=== PATIENT | female | born 1980 | race Caucasian/White ===

== ENCOUNTER 2016-04-19 13:27 | Emergency (ER) | payer OTHER ==
[2016-04-19] MEDS ORDERED: Metoclopramide IV* 5 MG/ML 2 ML VIAL IV ONE (13:59)
[2016-04-19] MEDS ORDERED: NS 0.9% 1000 ML* 1,000 ML IV ONE (13:59)
[2016-04-19] MEDS ORDERED: Ketorolac INJ* 30 MG/ML 1 ML VIAL IV ONE (13:59)
[2016-04-19] MEDS ORDERED: diPHENhydraMINE IV* 50 MG/ML 1 ml VIAL (BENADRYL) IV ONE (14:00)
[2016-04-19 16:26] VITALS: BP 107/62
--- NOTE | 2016-04-19 19:27 | ED ---
Homero Oliva Janilya, scribed for Jigar Mora MD on 04/19/16 at 1344 . Headache - HPI Summary HPI Summary: A 35 y/o [facility] [place] w/ a gradual onset of constant VILLALTA for 6 days. Pt reports she had eye pain that was similar to "after crying a lot " that started 4 days ago. The next day, pt had eye appointment that has been previously scheduled. At appt, eye drops were used to dilate her eyes. Afterwards, eye pain has progressively worsened. Pt states it feels like pressure and muscle pain "behind eye". It is always one or the other eye, never both. Pt states she feels nauseated and weak. Pt denies vision changes. At this moment, the left eye hurts. Pt denies neck pain to palpation. PMHx tension VILLALTA in neck, for which, pt normally takes Advil. For this particular VILLALTA, pt took Flexeril today at 1030 and yesterday. It slightly relieved the pain. Pt also used icy hot on neck. - History Of Current Complaint Chief Complaint: EDHeadache Stated Complaint: HEADACHE Time Seen by Provider: 04/19/16 13:39 Hx Obtained From: Patient Hx Last Menstrual Period: started January 16 Onset/Duration: Gradual Onset, Started days ago, Still Present Initially Headache Was: Moderate Currently Pain Is: Moderate Timing: Constant Aggravating Factor: Nothing Allevating Factors: Medication - muscle relaxant, Position Change - moving head - Risk Factors SAH Risk Factors: Negative Meningitis Risk Factors: Immune Deficiency SDH Risk Factors: Negative Temporal Arteritis Risk Factors: Female - Allergies/Home Medications Allergies/Adverse Reactions: Allergies Allergy/AdvReac Type Severity Reaction Status Date / Time Lactose Intolerance (GI) Allergy Severe Diarrhea Verified 12/02/15 13:14 Prednisone AdvReac Severe Altered Verified 01/25/16 09:38 Mental Status Erythromycin AdvReac vomiting, Verified 01/25/16 09:38 shaking Gluten Meal AdvReac See Comment Verified 12/02/15 13:14 orthotricyclen Allergy Hives Uncoded 12/02/15 13:14 sris AdvReac Unknown Uncoded 01/25/16 09:38 Reaction Details PMH/Surg Hx/FS Hx/Imm Hx Endocrine/Hematology History: Denies: Hx Anticoagulant Therapy, Hx Diabetes, Hx Thyroid Disease Cardiovascular History: Denies: Hx Angina, Hx Congestive Heart Failure, Hx Coronary Artery Disease, Hx Deep Vein Thrombosis, Hx Hypercholesterolemia, Hx Hypertension, Hx Myocardial Infarction, Hx Pacemaker/ICD, Hx Valvular Heart Disease Respiratory History: Denies: Hx Asthma, Hx Chronic Obstructive Pulmonary Disease (COPD), Hx Lung Cancer, Hx Pneumonia, Hx Pulmonary Embolism GI History: Reports: Other GI Disorders - HX OF C-DIFF Denies: Hx Gall Bladder Disease, Hx Gastrointestinal Bleed, Hx Ulcer, Hx Urosepsis History: Denies: Hx Dialysis, Hx Kidney Stones, Hx Renal Disease, Other Problems/ Disorders Musculoskeletal History: Denies: Hx Scoliosis Neurological History: Reports: Hx Headaches, Other Neuro Impairments/Disorders - HX OF FIBROMYALGIA Denies: Hx Dementia, Hx Migraine, Hx Seizures, Hx Transient Ischemic Attacks (TIA) Psychiatric History: Reports: Hx Anxiety, Hx Depression Denies: Hx Schizophrenia, Hx Bipolar Disorder - Immunization History Date of Tetanus Vaccine: Unknown Infectious Disease History: No Infectious Disease History: Reports: Hx Clostridium Difficile - Apr,May,Jun 2008 Denies: Hx Hepatitis, Hx Human Immunodeficiency Virus (HIV), Hx of Known/ Suspected MRSA, Hx Shingles, Hx Tuberculosis, Hx Known/Suspected VRE, Hx Known/ Suspected VRSA, History Other Infectious Disease, Traveled Outside the [place] in Last 30 Days - Family History Known Family History: Positive: Cardiac Disease, Other - lupus Negative: Hypertension - Social History Alcohol Use: None Substance Use Type: Reports: None, Prescribed Smoking Status (MU): Never Smoked Tobacco Review of Systems Eyes: Negative - pt denies vision changes, see hpi Positive: Other - pressure and pain behind eye Positive: Nausea Positive: Headache, Weakness All Other Systems Reviewed And Are Negative: Yes Physical Exam Triage Information Reviewed: Yes Vital Signs On Initial Exam: Initial Vitals Temp Pulse Resp BP Pulse Ox 97.9 F 86 16 123/65 100 04/19/16 13:30 04/19/16 13:30 04/19/16 13:30 04/19/16 13:30 04/19/16 13:30 Vital Signs Reviewed: Yes Appearance: Positive: Well-Appearing, Pain Distress - moderate Skin: Positive: Warm, Skin Color Reflects Adequate Perfusion, Dry Head/Face: Positive: Normal Head/Face Inspection - no meningeal signs Eyes: Positive: Normal - no meningeal signs ENT: Positive: Normal ENT inspection Neck: Positive: Supple, Nontender Respiratory/Lung Sounds: Positive: Clear to Auscultation, Breath Sounds Present Cardiovascular: Positive: RRR Abdomen Description: Positive: Nontender, Soft Bowel Sounds: Positive: Present Musculoskeletal: Positive: Normal Neurological: Positive: Normal Psychiatric: Positive: Affect/Mood Appropriate Diagnostics - Vital Signs Vital Signs Temp Pulse Resp BP Pulse Ox 04/19/16 13:30 97.9 F 86 16 123/65 100 - Laboratory Lab Statement: Any lab studies that have been ordered have been reviewed, and results considered in the medical decision making process. Headache Course/Dx - Course Course Of Treatment: Agustin Aquino presented with a VILLALTA that was somewhat different from her usual muscle tension VILLALTA' in that it was located behing one or the other eye and would switch back and forth for several days. She improved dramatically here with the normal cocktail of ketorolac, reglan and benadryl and IV NS. - Diagnoses Provider Diagnoses: Migraine, Headache Discharge - Discharge Plan Condition: Stable Disposition: HOME Patient Education Materials: Migraine Headache (ED) Referrals: Jonathan Johnson MD [Primary Care Provider] - 2 Days Additional Instructions: Follow up with your primary care physician in 2 days if symptoms persist or worsen. The documentation as recorded by the Homero levy Janilya accurately reflects the service I personally performed and the decisions made by , Jigar Mora MD.
== END 2016-04-19 16:25 | disposition home or self-care (01) ==
LOC: ED 13:27
DX: G43.909 Migraine, unspecified, not intractable, without status migrainosus (principal); R51 Headache; R53.1 Weakness; R11.0 Nausea
CPT/HCPCS: 96374; 96375; 99283; J1200; J1885; J2765

== ENCOUNTER → 2017-01-23 01:37 | Emergency (ER) | payer OTHER ==
[2017-01-23 04:14] LABS: Hematocrit 36 % (35-47); Mean Corpuscular HGB Conc 33 g/dl (31-36); Mean Corpuscular Hemoglobin 27 pg (27-31); Mean Corpuscular Volume 83 fL (80-97); Mean Platelet Volume 8 um3 (7.4-10.4); Red Blood Count 4.38 10^6/ul (4.0-5.4); Red Cell Distribution Width 16 % (10.5-15); White Blood Count 5.5 10^3/ul (3.5-10.8)
[2017-01-23 04:30] LABS: ALT 25 U/L (7-52); AST 30 U/L (13-39); Albumin 4.1 g/dL (3.2-5.2); Alkaline Phosphatase 44 U/L (34-104); Anion Gap 6 mmol/L (2-11); BUN/Creatinine Ratio 21.2 (8-20); Blood Urea Nitrogen 18 mg/dL (6-24); CO2 Carbon Dioxide 27 mmol/L (22-32); Calcium 9.5 mg/dL (8.6-10.3); Chloride 104 mmol/L (101-111); EGFR African American 96.8 (>60); EGFR Non-African American 75.3 (>60); Globulin 2.9 g/dL (2-4); Glucose 95 mg/dL (70-100); Lipase 30 U/L (11.0-82.0); Potassium 3.6 mmol/L (3.5-5.0); Sodium 137 mmol/L (133-145)
[2017-01-23 05:46] LABS: Urine Bilirubin Negative (Negative); Urine Glucose Negative (Negative); Urine Nitrite Negative (Negative)
[2017-01-23 07:56] VITALS: BP 118/86
--- NOTE | 2017-01-23 08:16 | RAD ---
CLINICAL HISTORY: Right flank pain, renal calculi COMPARISON: February 03, 2012 TECHNIQUE: Multiple contiguous axial CT scans were obtained of the abdomen and pelvis, without intravenous contrast enhancement. Coronal and sagittal multiplanar reformations are submitted for review. Oral contrast was not administered. FINDINGS: The study is limited by the lack of intravenous contrast. This limits evaluation of the solid organs and vasculature. LUNG BASES: The lung bases are clear. LIVER: The liver is normal in shape, size, contour, and attenuation. BILE DUCTS: There is no intrahepatic or extrahepatic biliary dilatation. GALLBLADDER: The gallbladder is normal, without pericholecystic inflammatory change. PANCREAS: The pancreas is normal, without mass or ductal dilatation. SPLEEN: Normal in size and appearance. UPPER GI TRACT: Evaluation of the gastrointestinal tract is limited by incomplete gastric distention. The upper GI tract is unremarkable. SMALL BOWEL AND MESENTERY: The small bowel is normal in contour, course, and caliber. There is no obstruction or dilatation. COLON: The colon is normal in contour, course, caliber. There is no pericolonic inflammatory change. ADRENALS: Normal bilaterally. KIDNEYS: The kidneys are normal in shape, size, contour, and axis. There is no hydronephrosis or nephrolithiasis. BLADDER: The bladder is collapsed and is not well evaluated. PELVIC ORGANS: The uterus and adnexa are grossly normal for technique. AORTA: The aorta is normal. IVC: Unremarkable LYMPH NODES: There is no lymphadenopathy by size criteria. ABDOMINAL WALL: There is no evidence for abdominal wall hernia. BONES AND SOFT TISSUES: Minimal degenerative changes are noted at L5-S1 OTHER: None IMPRESSION: NO ACUTE CT PATHOLOGY OF THE VISUALIZED ABDOMEN OR PELVIS.
--- NOTE | 2017-01-23 18:43 | ED ---
Loan Oliva Edward, scribed for Favio Adair MD on 01/23/17 at 0727 . Abdominal Pain/Female - HPI Summary HPI Summary: 36 y/o female presents to the ED c/o waxing and waning RLQ ABD pain for 3 days. Pt has not taken anything for pain. Pt is in no pain currently. The pain is not aggravated or alleviated by anything. - History of Current Complaint Chief Complaint: EDAbdPain Stated Complaint: RLQ PAIN Time Seen by Provider: 01/23/17 03:24 Hx Obtained From: Patient Hx Last Menstrual Period: started January 16 Onset/Duration: Lasting Days Timing: Intermittent Episode Lasting - waxing and waning Severity Currently: None Pain Intensity: 0 Location: Discrete At: RLQ Aggravating Factor(s): Nothing Alleviating Factor(s): Nothing Allergies/Adverse Reactions: Allergies Allergy/AdvReac Type Severity Reaction Status Date / Time Lactose Intolerance (GI) Allergy Severe Diarrhea Verified 12/02/15 13:14 Prednisone AdvReac Severe Altered Verified 01/25/16 09:38 Mental Status Erythromycin AdvReac vomiting, Verified 01/25/16 09:38 shaking Gluten Meal AdvReac See Comment Verified 12/02/15 13:14 orthotricyclen Allergy Hives Uncoded 12/02/15 13:14 sris AdvReac Unknown Uncoded 01/25/16 09:38 Reaction Details PMH/Surg Hx/FS Hx/Imm Hx Previously Healthy: No Endocrine/Hematology History: Denies: Hx Anticoagulant Therapy, Hx Diabetes, Hx Thyroid Disease Cardiovascular History: Denies: Hx Angina, Hx Congestive Heart Failure, Hx Coronary Artery Disease, Hx Deep Vein Thrombosis, Hx Hypercholesterolemia, Hx Hypertension, Hx Myocardial Infarction, Hx Pacemaker/ICD, Hx Valvular Heart Disease Respiratory History: Denies: Hx Asthma, Hx Chronic Obstructive Pulmonary Disease (COPD), Hx Lung Cancer, Hx Pneumonia, Hx Pulmonary Embolism GI History: Reports: Other GI Disorders - HX OF C-DIFF Denies: Hx Gall Bladder Disease, Hx Gastrointestinal Bleed, Hx Ulcer, Hx Urosepsis History: Denies: Hx Dialysis, Hx Kidney Stones, Hx Renal Disease, Other Problems/ Disorders Musculoskeletal History: Denies: Hx Scoliosis Sensory History: Denies: Hx Hearing Aid Neurological History: Reports: Hx Headaches, Other Neuro Impairments/Disorders - HX OF FIBROMYALGIA Denies: Hx Dementia, Hx Migraine, Hx Seizures, Hx Transient Ischemic Attacks (TIA) Psychiatric History: Reports: Hx Anxiety, Hx Depression Denies: Hx Panic Disorder, Hx Schizophrenia, Hx Bipolar Disorder - Surgical History Surgery Procedure, Year, and Place: CYSTOSCOPY ; SIGNMOIDSCOPY ; ENDOSCOPY - Immunization History Date of Tetanus Vaccine: Unknown Infectious Disease History: No Infectious Disease History: Reports: Hx Clostridium Difficile - Apr,May,Jun 2008 Denies: Hx Hepatitis, Hx Human Immunodeficiency Virus (HIV), Hx of Known/ Suspected MRSA, Hx Shingles, Hx Tuberculosis, Hx Known/Suspected VRE, Hx Known/ Suspected VRSA, History Other Infectious Disease, Traveled Outside the [place] in Last 30 Days - Family History Known Family History: Positive: Cardiac Disease, Other - lupus Negative: Hypertension - Social History Alcohol Use: None Substance Use Type: Reports: None, Prescribed Smoking Status (MU): Never Smoked Tobacco Review of Systems Constitutional: Negative Eyes: Negative ENT: Negative Cardiovascular: Negative Respiratory: Negative Positive: Abdominal Pain Genitourinary: Negative Musculoskeletal: Negative Skin: Negative Neurological: Negative Psychological: Normal All Other Systems Reviewed And Are Negative: Yes Physical Exam - Summary Physical Exam Summary: VITAL SIGNS: Reviewed. GENERAL: Patient is a well-developed and nourished female who is lying comfortable in the stretcher. ~Patient is not in any acute respiratory distress. HEAD AND FACE: Normocephalic and atraumatic. EYES: PERRLA, EOMI x 2, No injected conjunctiva. EARS: Hearing grossly intact. Ear canals and tympanic membranes are WNL. MOUTH: Oropharynx within normal limits. NECK: Supple, trachea is midline, no adenopathy, no JVD. CHEST: Symmetric, no tenderness at palpation LUNGS: Clear to auscultation bilaterally. No wheezing or crackles. CVS: RRR, S1 and S2 present, no murmurs or gallops appreciated. ABDOMEN: Soft, non-tender. No signs of distention. Positive bowel sounds. No rebound no guarding, and no masses palpated. No abdominal bruit or pulsations. EXTREMITIES: FROM in all major joints, no edema, no cyanosis or clubbing. NEURO: Alert and oriented x 3. No acute neurological deficits. Speech is normal. SKIN: Dry and warm Triage Information Reviewed: Yes Vital Signs On Initial Exam: Initial Vitals Temp Pulse Resp BP Pulse Ox 96.9 F 94 14 138/70 100 01/23/17 01:40 01/23/17 01:40 01/23/17 01:40 01/23/17 01:40 01/23/17 01:40 Vital Signs Reviewed: Yes - [place] Coma Scale Coma Scale Total: 15 Diagnostics - Vital Signs Vital Signs Temp Pulse Resp BP Pulse Ox 01/23/17 01:40 96.9 F 94 14 138/70 100 - Laboratory Lab Results: Lab Results 01/23/17 01/23/17 01/23/17 Range/Units 03:50 03:50 04:17 WBC 5.5 (3.5-10.8) 10^3/ul RBC 4.38 (4.0-5.4) 10^6/ul Hgb 12.0 (12.0-16.0) g/dl Hct 36 (35-47) % MCV 83 (80-97) fL MCH 27 (27-31) pg MCHC 33 (31-36) g/dl RDW 16 H (10.5-15) % Plt Count 206 (150-450) 10^3/ul MPV 8 (7.4-10.4) um3 Neut % (Auto) 61.3 (38-83) % Lymph % (Auto) 26.8 (25-47) % [place] % (Auto) 9.6 H (1-9) % Eos % (Auto) 1.5 (0-6) % Baso % (Auto) 0.8 (0-2) % Absolute Neuts (auto) 3.4 (1.5-7.7) 10^3/ul Absolute Lymphs (auto) 1.5 (1.0-4.8) 10^3/ul Absolute Monos (auto) 0.5 (0-0.8) 10^3/ul Absolute Eos (auto) 0.1 (0-0.6) 10^3/ul Absolute Basos (auto) 0 (0-0.2) 10^3/ul Absolute Nucleated RBC 0 10^3/ul Nucleated RBC % 0 Sodium 137 (133-145) mmol/L Potassium 3.6 (3.5-5.0) mmol/L Chloride 104 (101-111) mmol/L Carbon Dioxide 27 (22-32) mmol/L Anion Gap 6 (2-11) mmol/L BUN 18 (6-24) mg/dL Creatinine 0.85 (0.51-0.95) mg/dL Est GFR ( Amer) 96.8 (>60) Est GFR (Non-Af Amer) 75.3 (>60) BUN/Creatinine Ratio 21.2 H (8-20) Glucose 95 (70-100) mg/dL Calcium 9.5 (8.6-10.3) mg/dL Total Bilirubin 0.20 (0.2-1.0) mg/dL AST 30 (13-39) U/L ALT 25 (7-52) U/L Alkaline Phosphatase 44 (34-104) U/L Total Protein 7.0 (6.4-8.9) g/dL Albumin 4.1 (3.2-5.2) g/dL Globulin 2.9 (2-4) g/dL Albumin/Globulin Ratio 1.4 (1-3) Lipase 30 (11.0-82.0) U/L Beta HCG, Quant < 0.60 mIU/mL Urine Color Yellow Urine Appearance Cloudy Urine pH 5.0 (5-9) Ur Specific Accord 1.027 (1.010-1.030) Urine Protein Negative (Negative) Urine Ketones Trace H (Negative) Urine Blood Negative (Negative) Urine Nitrate Negative (Negative) Urine Bilirubin Negative (Negative) Urine Urobilinogen Negative (Negative) Ur Leukocyte Esterase Negative (Negative) Urine Glucose Negative (Negative) Urine Ascorbic Acid * H (Negative) Result Diagrams: 01/23/17 03:50 01/23/17 03:50 Lab Statement: Any lab studies that have been ordered have been reviewed, and results considered in the medical decision making process. - CT ABD/PEL CT CT Interpretation: No Acute Changes - NO LOCALIZING SINGS FOR ACUTE PATHOLOGY Abdominal Pain Fem Course/Dx - Course Course Of Treatment: 36 y/o female presents to the ED c/o waxing and waning RLQ ABD pain for 3 days. Pt has not taken anything for pain. Pt is in no pain currently. The pain is not aggravated or alleviated by anything. ABD/PEL CT NEGATIVE. Pt signed out by Dr. Head. He requested to f/u the ABD/PEL CT to r/ o kidney stones since pt was c/o flank pain. I offered a pelvic exam but the pt declined. Blood work shows no significant abnormalities. UA (-) UTI. Pts pain has subsided and the pt is asymptomatic. Therefore she will be d/c home with f/ u with PCP. The pt is hemodynamically stable, A&Ox3. - Diagnoses Differential Diagnosis: Positive: Bowel Obstruction, Constipation, Renal Colic Provider Diagnoses: Flank pain Discharge - Discharge Plan Condition: Stable Disposition: HOME Patient Education Materials: Flank Pain (ED) Referrals: Jonathan Johnson MD [Primary Care Provider] - 4 Days (PLEASE F/U IN 3-5 DAYS) The documentation as recorded by the Loan levy Edward accurately reflects the service I personally performed and the decisions made by Giovany adams Walter, MD.
== END | disposition home or self-care (01) ==
LOC: ED 01:37
DX: R10.31 Right lower quadrant pain (principal)
CPT/HCPCS: 36415; 74176; 80053; 81003; 83690; 84702; 85025; 99282

== ENCOUNTER 2017-05-13 13:25 | Emergency (ER) | payer OTHER ==
[2017-05-13 14:21] LABS: ABS Basophils 0 10^3/ul (0-0.2); ABS Eosinophils 0.1 10^3/ul (0-0.6); ABS Monocytes 0.4 10^3/ul (0-0.8); ABS Neutrophils 2.5 10^3/ul (1.5-7.7); ABS Nucleated RBC 0 10^3/ul; Eosinophil % 1.3 % (0-6); Hematocrit 37 % (35-47); Hemoglobin 12.5 g/dl (12.0-16.0); Lymphocyte % 25.5 % (25-47); Mean Corpuscular HGB Conc 34 g/dl (31-36); Mean Corpuscular Hemoglobin 29 pg (27-31); Mean Corpuscular Volume 86 fL (80-97); Mean Platelet Volume 8 um3 (7.4-10.4); Nucleated Red Blood Cells % 0; Platelet Count 192 10^3/ul (150-450); Red Blood Count 4.29 10^6/ul (4.0-5.4); Red Cell Distribution Width 14 % (10.5-15)
--- OUTSIDE RECORDS SUMMARY | 2017-05-13 14:27 | XMS REPORT ---
:1980 External Reference #:[id number] Author Organization [facility] Address [address] [address] Phone [phone] Care Team Providers Name Role Phone Jonathan Johnson MD Primary Care Physician Unavailable Payers Type Date Identification Numbers Payment Provider Subscriber Commercial Policy Number: [id number] [employer] Juan Carlos Aquino Group Number: [id number] [address] PayID: [id number] [place] [address] Problems Date Description Provider Status Onset: 07/09/2014 Palpitations Migdalia Gant M.D. Active Onset: 01/23/2016 Autonomic dysreflexia Migdalia aGnt M.D. Active Family History Date Family Member(s) Problem(s) Comments General Heart Disease Grand mother General cancer General Bipolar Disorder Mother Hypotension Siblings 1 half brother - Hep C Siblings cousin with lupus, father with arthritis Social History Type Date Description Comments Marital Status Lives With spouse Occupation violin/viola instructor Cigarette Use Never Smoked Cigarettes ETOH Use Denies alcohol use Smoking Patient has never smoked Recreational Drug Use Never Used Drugs Recreational Drug Use 01/23/2016 Denies Drug Use Daily Caffeine Soda rarely Daily Caffeine Decaf Mocha once a month Exercise Type/Frequency Exercises regularly General Hx Text Low gluten, lactose free diet with minimal caffeine. Allergies, Adverse Reactions, Alerts Date Description Reaction Status Severity Comments 04/19/2014 Ssris active 06/12/2014 Erythromycin active 06/12/2014 Prednisone agitation active Severe 08/10/2014 Lactose (Intolerance) active 08/10/2014 Gluten ( Intolerance) active Medications Medication Date Status Form Strength Qnty SIG Indications Ordering Provider Slow Release 12/28/ Active Tablets ER 160(50Fe) 90tabs take one Mendel Iron 2017 mg capsule/ta Marsha blet daily M.D. by mouth Ativan 00/ Active Tablets 0.15mg 20tabs 1-2 by Unknown 0000 mouth every day 5-HTP / Active Capsules 50mg 1 cap po Unknown 0000 daily Melatonin / Active Capsules 3mg 90caps 1 by mouth Unknown 0000 every night at bedtime Advil / Active Cap 200mg 1 cap as Unknown 0000 needed Tylenol Extra / Active Tablets 500mg 2 by mouth Unknown Strength 0000 as needed-shahram katy Plaquenil / Active Tablets 200mg 90tabs take 1 Mendel 0000 tablet by Marsha, mouth M.D. every day Floradex Iron / Active Unknown And Herbs 0000 Vitamin D3 / Active Capsules 5000Unit 1 by mouth Unknown Ultra Strength 0000 every other day Mupirocin 12/09/ Hx Ointment 2% 22gm apply to 2016 - both Marsha, 02/08/ nostrils M.D. 2017 twice a day for 5 days Vitamin D High / Hx Capsules 1000Unit 1 by mouth Unknown Potency 0000 - every day 2014 Biotin / Hx Capsules 1mg daily Unknown 0000 - 2014 Sumatriptan / Hx Tablets 25mg 1 tablet Unknown Succinate 0000 - every 5 12/ hourly 2015 until rel Immunizations CPT Code Status Date Vaccine Reaction Lot # [id number] Given 12/24/2016 Influenza Virus Vaccine, no immediate reaction [id number] Quadrivalent, Split, Preservative Free [id number] Given 02/14/2016 Influenza Virus Vaccine, no reaction noted [id number] Quadrivalent, Split Virus, Im Use Vital Signs Date Vital Result Comment 05/11/2017 Height 63.5 inches 5'3.50" Weight 124.38 lb Heart Rate 80 /min BP Systolic Sitting 99 mmHg BP Diastolic Sitting 66 mmHg Respiratory Rate 14 /min Pain Level 0 BMI (Body Mass Index) 21.7 kg/m2 02/08/2017 Height 63.5 inches 5'3.50" Weight 126.00 lb Heart Rate 86 /min BP Systolic Sitting 110 mmHg BP Diastolic Sitting 67 mmHg Respiratory Rate 14 /min Pain Level 2 BMI (Body Mass Index) 22.0 kg/m2 12/24/2016 Height 63.5 inches 5'3.50" Weight 126.00 lb Heart Rate 75 /min BP Systolic Sitting 109 mmHg BP Diastolic Sitting 71 mmHg Respiratory Rate 14 /min Pain Level 0 BMI (Body Mass Index) 22.0 kg/m2 12/09/2016 Height 63.5 inches 5'3.50" Weight 124.38 lb Heart Rate 90 /min BP Systolic Sitting 108 mmHg BP Diastolic Sitting 60 mmHg Respiratory Rate 14 /min Pain Level 3 BMI (Body Mass Index) 21.7 kg/m2 09/23/2016 Height 63.5 inches 5'3.50" Weight 123.00 lb Heart Rate 90 /min BP Systolic Sitting 104 mmHg BP Diastolic Sitting 63 mmHg Body Temperature 98.5 F Pain Level 2 BMI (Body Mass Index) 21.4 kg/m2 06/15/2016 Height 63.5 inches 5'3.50" Weight 121.38 lb Heart Rate 90 /min BP Systolic Sitting 125 mmHg BP Diastolic Sitting 79 mmHg Respiratory Rate 14 /min Body Temperature 97.5 F BMI (Body Mass Index) 21.2 kg/m2 04/16/2016 Height 63.5 inches 5'3.50" Weight 119.38 lb Heart Rate 100 /min BP Systolic Sitting 90 mmHg BP Diastolic Sitting 60 mmHg Respiratory Rate 14 /min Body Temperature 97.4 F Pain Level 1 BMI (Body Mass Index) 20.8 kg/m2 02/14/2016 Height 63.5 inches 5'3.50" Weight 120.00 lb Heart Rate 76 /min BP Systolic Sitting 100 mmHg BP Diastolic Sitting 66 mmHg Respiratory Rate 14 /min Body Temperature 97.5 F Pain Level 0 BMI (Body Mass Index) 20.9 kg/m2 01/23/2016 Height 63.5 inches 5'3.50" Weight 121.00 lb with shoes Heart Rate 80 /min BP Systolic Sitting 116 mmHg Lue reg cuff BP Diastolic Sitting 78 mmHg Lue reg cuff BP Systolic Standing 102 mmHg Lue reg cuff BP Diastolic Standing 78 mmHg Lue reg cuff Respiratory Rate 16 /min BMI (Body Mass Index) 21.1 kg/m2 08/23/2015 Height 63.5 inches 5'3.50" Weight 120.00 lb Heart Rate 88 /min BP Systolic Sitting 100 mmHg BP Diastolic Sitting 60 mmHg Body Temperature 98.6 F Pain Level 0 BMI (Body Mass Index) 20.9 kg/m2 01/22/2015 Height 63 inches 5'3" Weight 120.00 lb Heart Rate 80 /min BP Systolic Sitting 118 mmHg LA reg cuff BP Diastolic Sitting 68 mmHg LA reg cuff BP Systolic Standing 114 mmHg LA BP Diastolic Standing 66 mmHg LA Respiratory Rate 16 /min BMI (Body Mass Index) 21.3 kg/m2 Ejection Fraction 65% 01/13/11 08/10/2014 Height 63 inches 5'3" Weight 118.00 lb with shoes Heart Rate 70 /min BP Systolic Sitting 100 mmHg LA reg cuff BP Diastolic Sitting 60 mmHg LA reg cuff BP Systolic Standing 96 mmHg LA reg cuff BP Diastolic Standing 64 mmHg LA reg cuff Respiratory Rate 16 /min BMI (Body Mass Index) 20.9 kg/m2 07/09/2014 Height 63 inches 5'3" Weight 117.00 lb no shoes Heart Rate 68 /min BP Systolic 96 mmHg Ra, reg cuff BP Diastolic 70 mmHg Ra, reg cuff BP Systolic Sitting 98 mmHg LA, reg cuff BP Diastolic Sitting 74 mmHg LA, reg cuff BP Systolic Standing 98 mmHg LA BP Diastolic Standing 72 mmHg LA Respiratory Rate 14 /min BMI (Body Mass Index) 20.7 kg/m2 04/19/2014 Height 63 inches 5'3" Weight 118.00 lb Heart Rate 78 /min BP Systolic 104 mmHg BP Diastolic 69 mmHg BMI (Body Mass Index) 20.9 kg/m2 Results Test Date Test Result H/L Range Note Laboratory test finding 05/03/2017 Erythrocyte Sed Rate 15 mm/Hr High 0- 14 C Reactive Protein 2.19 mg/L < 5.00 1 Creatine Kinase(CK) <pending> CBC Auto Diff 05/03/2017 White Blood Count 3.4 10^3/uL Low 3.5-10.8 Red Blood Count 4.42 10^6/uL 4.0-5.4 Hemoglobin 12.9 g/dL 12.0-16.0 Hematocrit 38 % 35-47 Mean Corpuscular Volume 86 fL 80-97 Mean Corpuscular Hemoglobin 29 pg 27-31 Mean Corpuscular HGB Conc 34 g/dL 31-36 Red Cell Distribution Width 14 % 10.5-15 Platelet Count 184 10^3/uL 150-450 Mean Platelet Volume 8 um3 7.4-10.4 Abs Neutrophils 2.3 10^3/uL 1.5-7.7 Abs Lymphocytes 0.8 10^3/uL Low 1.0-4.8 Abs Monocytes 0.3 10^3/uL 0-0.8 Abs Eosinophils 0.1 10^3/uL 0-0.6 Abs Basophils 0 10^3/uL 0-0.2 Abs Nucleated RBC 0 10^3/uL Granulocyte % 66.6 % 38-83 Lymphocyte % 22.4 % Low 25-47 Monocyte % 8.3 % 1-9 Eosinophil % 1.8 % 0-6 Basophil % 0.9 % 0-2 Nucleated Red Blood Cells % 0.1 Comp Metabolic Panel 05/03/2017 Sodium 138 mmol/L 133-145 Potassium 4.1 mmol/L 3.5-5.0 Chloride 104 mmol/L 101-111 Co2 Carbon Dioxide 30 mmol/L 22-32 Anion Gap 4 mmol/L 2-11 Glucose 88 mg/dL 70-100 Blood Urea Nitrogen 18 mg/dL 6-24 Creatinine 0.84 mg/dL 0.51-0.95 BUN/Creatinine Ratio 21.4 High 8-20 Calcium 9.6 mg/dL 8.6-10.3 Total Protein 6.9 g/dL 6.4-8.9 Albumin 4.3 g/dL 3.2-5.2 Globulin 2.6 g/dL 2-4 Albumin/Globulin Ratio 1.7 1-3 Total Bilirubin 0.50 mg/dL 0.2-1.0 Alkaline Phosphatase 44 U/L 34-104 Alt 12 U/L 7-52 Ast 22 U/L 13-39 Egfr Non- 76.3 >60 Egfr 98.1 >60 2 Laboratory test finding 05/03/2017 Vitamin D, 1,25 46 pg/mL 18-78 3 Dihydroxy Vitamin B12 And Folate 05/03/2017 Vitamin B12 <pending> Serum Folic Acid (Folate) <pending> Laboratory test finding 05/03/2017 Free Cortisol Serum <pending> Iron & Iron Binding 05/03/2017 Iron 82 g/dL 50-212 Capacity Unsaturated Iron Binding 309 g/dL Total Iron Binding Capacity 391 g/dL 250-450 % Iron Saturation 21 % 15-55 Laboratory test finding 05/03/2017 Ferritin 13.7 ng/mL 11-307 Vitamin D 1,25 And Vitamin 12/24/2016 Vitamin D Total 25(Oh) 36.2 ng/mL 20-50 D,2 Vitamin D, 1,25 Dihydroxy 60 pg/mL 18-78 4 Iron & Iron Binding Capacity 12/24/2016 Iron 38 g/dL Low 50-212 Unsaturated Iron Binding 414 g/dL Total Iron Binding Capacity 452 g/dL High 250-450 % Iron Saturation 8 % Low 15-55 Laboratory test finding 12/24/2016 Ferritin < 10.0 ng/mL Low 11-307 Thyroglobulin AB <1.8 IU/mL <4.0 5 Thyroperoxidase AB 0.61 IU/mL <9 Vitamin B6 12/10/2016 Pyridoxal 5-Phosphate 90 g/L 5-50 6 Pyridoxic Acid 34 g/L 3-30 7 Laboratory test finding 12/10/2016 C Reactive Protein < 1.00 mg/L &lt ; 5.00 8 T3 Free 4.20 pg/mL High 2.5-3.9 Folic Acid (Folate) > 20.00 ng/mL >3.99 Vitamin B12 662 pg/mL 180-914 9 Erythrocyte Sed Rate 16 mm/Hr High 0-14 Vitamin B1 (Whole Blood) 131 nmol/L 70-180 10 Liver Function Panel 12/10/2016 Total Protein 7.5 g/dL 6.4-8.9 Albumin 4.6 g/dL 3.2-5.2 Globulin 2.9 g/dL 2-4 Albumin/Globulin Ratio 1.6 1-3 Total Bilirubin 0.40 mg/dL 0.2-1.0 Direct Bilirubin 0.10 mg/dL 0.03-0.18 Indirect Bilirubin 0.3 mg/dL 0.3-1.0 Alkaline Phosphatase 41 U/L 34-104 Alt 17 U/L 7-52 Ast 25 U/L 13-39 Laboratory test finding 12/10/2016 Creatine Kinase(CK) 61 U/L 10-223 Comp Metabolic Panel 06/06/2016 Sodium 137 mmol/L 133-145 Potassium 3.6 mmol/L 3.5-5.0 Chloride 105 mmol/L 101-111 Co2 Carbon Dioxide 28 mmol/L 22-32 Anion Gap 4 mmol/L 2-11 Glucose 76 mg/dL 70-100 Blood Urea Nitrogen 18 mg/dL 6-24 Creatinine 0.76 mg/dL 0.51-0.95 BUN/Creatinine Ratio 23.7 High 8-20 Calcium 9.2 mg/dL 8.6-10.3 Total Protein 6.5 g/dL 6.4-8.9 Albumin 3.9 g/dL 3.2-5.2 Globulin 2.6 g/dL 2-4 Albumin/Globulin Ratio 1.5 1-3 Total Bilirubin 0.30 mg/dL 0.2-1.0 Alkaline Phosphatase 41 U/L 34-104 Alt 19 U/L 7-52 Ast 23 U/L 13-39 Egfr Non- 86.1 >60 Egfr 110.7 >60 11 Vitamin D 1,25 And Vitamin 06/06/2016 Vitamin D Total 25(Oh) 21.7 ng/mL Low 30-50 12 D,2 Vitamin D, 1,25 Dihydroxy 53 pg/mL 18-78 13 Laboratory test finding 06/06/2016 Vitamin B12 697 pg/mL 180-914 14 CBC Auto Diff 06/06/2016 White Blood Count 3.8 10^3/uL 3.5-10.8 Red Blood Count 4.28 10^6/uL 4.0-5.4 Hemoglobin 11.4 g/dL Low 12.0-16.0 Hematocrit 34 % Low 35-47 Mean Corpuscular Volume 80 fL 80-97 Mean Corpuscular Hemoglobin 27 pg 27-31 Mean Corpuscular HGB Conc 33 g/dL 31-36 Red Cell Distribution Width 14 % 10.5-15 Platelet Count 195 10^3/uL 150-450 Mean Platelet Volume 8 um3 7.4-10.4 Abs Neutrophils 1.9 10^3/uL 1.5-7.7 Abs Lymphocytes 1.3 10^3/uL 1.0-4.8 Abs Monocytes 0.5 10^3/uL 0-0.8 Abs Eosinophils 0.1 10^3/uL 0-0.6 Abs Basophils 0 10^3/uL 0-0.2 Abs Nucleated RBC 0 10^3/uL Granulocyte % 50.9 % 38-83 Lymphocyte % 33.3 % 25-47 Monocyte % 12.1 % High 1-9 Eosinophil % 2.9 % 0-6 Basophil % 0.8 % 0-2 Nucleated Red Blood Cells % 0.1 Laboratory test finding 06/06/2016 C Reactive Protein < 1.00 mg/L &lt ; 5.00 15 Erythrocyte Sed Rate 13 mm/Hr 0-14 16 Vitamin D 1,25 And Vitamin 01/23/2016 Vitamin D Total 25(Oh) 22.2 ng/mL Low 30-50 17 D,2 Vitamin D, 1,25 Dihydroxy 74 pg/mL 18-78 18 Urinalysis Profile 01/23/2016 Urine Color Yellow Urine Appearance Clear Urine Specific [place] 1.023 1.010-1.030 Urine pH 6.0 5-9 Urine Urobilinogen Negative Negative Urine Ketones Negative Negative Urine Protein Negative Negative Urine Leukocytes Negative Negative Urine Blood Negative Negative * * Negative 19 Urine Nitrite Negative Negative Urine Bilirubin Negative Negative Urine Glucose Negative Negative Laboratory test finding 01/23/2016 Free Cortisol Serum 0.28 g/dL 20 Vitamin B12 987 pg/mL High 180-914 21 Comp Metabolic Panel 01/23/2016 Sodium 135 mmol/L 133-145 Potassium 4.0 mmol/L 3.5-5.0 Chloride 102 mmol/L 101-111 Co2 Carbon Dioxide 29 mmol/L 22-32 Anion Gap 4 mmol/L 2-11 Glucose 77 mg/dL 70-100 Blood Urea Nitrogen 15 mg/dL 6-24 Creatinine 0.77 mg/dL 0.51-0.95 BUN/Creatinine Ratio 19.5 8-20 Calcium 9.8 mg/dL 8.6-10.3 Total Protein 7.6 g/dL 6.4-8.9 Albumin 4.5 g/dL 3.2-5.2 Globulin 3.1 g/dL 2-4 Albumin/Globulin Ratio 1.5 1-3 Total Bilirubin 0.40 mg/dL 0.2-1.0 Alkaline Phosphatase 45 U/L 34-104 Alt 22 U/L 7-52 Ast 32 U/L 13-39 Egfr Non- 84.8 >60 Egfr 109.1 >60 22 CBC Auto Diff 01/23/2016 White Blood Count 3.9 10^3/uL 3.5-10.8 Red Blood Count 4.92 10^6/uL 4.0-5.4 Hemoglobin 12.9 g/dL 12.0-16.0 Hematocrit 40 % 35-47 Mean Corpuscular Volume 80 fL 80-97 Mean Corpuscular Hemoglobin 26 pg Low 27-31 Mean Corpuscular HGB Conc 33 g/dL 31-36 Red Cell Distribution Width 14 % 10.5-15 Platelet Count 193 10^3/uL 150-450 Mean Platelet Volume 8 um3 7.4-10.4 Abs Neutrophils 2.4 10^3/uL 1.5-7.7 Abs Lymphocytes 1.0 10^3/uL 1.0-4.8 Abs Monocytes 0.4 10^3/uL 0-0.8 Abs Eosinophils 0.1 10^3/uL 0-0.6 Abs Basophils 0 10^3/uL 0-0.2 Abs Nucleated RBC 0 10^3/uL Granulocyte % 62.3 % 38-83 Lymphocyte % 25.0 % 25-47 Monocyte % 9.8 % High 1-9 Eosinophil % 2.2 % 0-6 Basophil % 0.7 % 0-2 Nucleated Red Blood Cells % 0.1 Laboratory test finding 01/23/2016 Anti Ssa/Ro 5.8 U 23 Anti SSB LA <0.2 U 24 C Reactive Protein < 1.00 mg/L < 5.00 25 Erythrocyte Sed Rate 13 mm/Hr 0-14 26 Laboratory test finding 07/25/2014 Vitamin B12 798 pg/mL 180-914 27 Vitamin D Total 25(Oh) 24.6 ng/mL Low 30-50 Comp Metabolic Panel 07/25/2014 Sodium 138 mmol/L 133-145 Potassium 3.8 mmol/L 3.5-5.0 Chloride 103 mmol/L 101-111 Co2 Carbon Dioxide 28 mmol/L 22-32 Anion Gap 7 mmol/L 2-11 Glucose 87 mg/dL 70-100 Blood Urea Nitrogen 17 mg/dL 6-24 Creatinine 0.82 mg/dL 0.51-0.95 BUN/Creatinine Ratio 20.7 High 8-20 Calcium 9.2 mg/dL 8.6-10.3 Total Protein 6.8 g/dL 6.4-8.9 Albumin 4.2 g/dL 3.2-5.2 Globulin 2.6 g/dL 2-4 Albumin/Globulin Ratio 1.6 1-3 Total Bilirubin 0.40 mg/dL 0.2-1.0 Alkaline Phosphatase 40 U/L 34-104 Alt 16 U/L 7-52 Ast 25 U/L 13-39 Egfr Non- 79.8 >60 Egfr 102.6 >60 28 Laboratory test finding 07/25/2014 Erythrocyte Sed Rate 15 mm/Hr High 0- 14 Magnesium 1.7 mg/dL Low 1.9-2.7 Laboratory test finding 09/02/2013 Lyme Disease Serology Negative Negative 29 1 Acute inflammation: >10.00 2 Because ethnic data is not always readily available, this report includes an eGFR for both -Americans and non- Americans. The National Kidney Disease Education Program (NKDEP) does not endorse the use of the MDRD equation for patients that are not between the ages of 18 and 70, are , have extremes of body size, muscle mass, or nutritional status, or are non- or non-. According to the National Kidney Foundation, irrespective of diagnosis, the stage of the disease is based on the level of kidney function: Stage Description GFR(mL/min/1.73 m(2)) 1 Kidney damage with normal or decreased GFR 90 2 Kidney damage with mild decrease in GFR 60-89 3 Moderate decrease in GFR 30-59 4 Severe decrease in GFR 15-29 5 Kidney failure <15 (or dialysis) 3 ADDITIONAL INFORMATION This test was developed and its performance characteristics determined by [facility] in a manner consistent with CLIA requirements. This test has not been cleared or approved by the U.S. Food and Drug Administration. Test Performed by: [facility] [employer] - [address] [address] 4 ADDITIONAL INFORMATION This test was developed and its performance characteristics determined by [facility] in a manner consistent with CLIA requirements. This test has not been cleared or approved by the U.S. Food and Drug Administration. Test Performed by: [facility] [employer] - [address] [address] 5 ADDITIONAL INFORMATION The thyroglobulin antibody testing method is an immunoenzymatic assay manufactured by [employer] and performed on the [employer] DXI 800. Values obtained from different assay methods or kits may be different and cannot be used interchangeably. The results cannot be interpreted as absolute evidence for the presence or absence of malignant disease. Test Performed by: [facility] [employer] - [facility] [address] [id number] 6 In this sample, the increased pyridoxal 5-phosphate is likely related to dietary supplementation; however a mild expression of hypophosphatasia cannot be excluded. Consider analysis of serum alkaline phosphatase isoenzymes and urinary phosphoethanolamine. ADDITIONAL INFORMATION This test was developed and its performance characteristics determined by [facility] in a manner consistent with CLIA requirements. This test has not been cleared or approved by the U.S. Food and Drug Administration. 7 ADDITIONAL INFORMATION This test was developed and its performance characteristics determined by [facility] in a manner consistent with CLIA requirements. This test has not been cleared or approved by the U.S. Food and Drug Administration. Test Performed by: [facility] [employer] - [address] [address] 8 Acute inflammation: >10.00 9 Normal Range 180 to 914 Indeterminate Range 145 to 180 Deficient Range <145 10 ADDITIONAL INFORMATION This test was developed and its performance characteristics determined by [facility] in a manner consistent with CLIA requirements. This test has not been cleared or approved by the U.S. Food and Drug Administration. Test Performed by: [facility] [employer] - [address] [address] 11 Because ethnic data is not always readily available, this report includes an eGFR for both -Americans and non- Americans. The National Kidney Disease Education Program (NKDEP) does not endorse the use of the MDRD equation for patients that are not between the ages of 18 and 70, are , have extremes of body size, muscle mass, or nutritional status, or are non- or non-. According to the National Kidney Foundation, irrespective of diagnosis, the stage of the disease is based on the level of kidney function: Stage Description GFR(mL/min/1.73 m(2)) 1 Kidney damage with normal or decreased GFR 90 2 Kidney damage with mild decrease in GFR 60-89 3 Moderate decrease in GFR 30-59 4 Severe decrease in GFR 15-29 5 Kidney failure <15 (or dialysis) 12 Please check 2 days before her visit 13 ADDITIONAL INFORMATION This test was developed and its performance characteristics determined by [facility] in a manner consistent with CLIA requirements. This test has not been cleared or approved by the U.S. Food and Drug Administration. Test Performed by: [facility] - [address] [address] 14 Normal Range 180 to 914 Indeterminate Range 145 to 180 Deficient Range <145 15 Acute inflammation: >10.00 16 Please check 2 days before her visit 17 Please check this week 18 ADDITIONAL INFORMATION This test was developed and its performance characteristics determined by [facility] in a manner consistent with CLIA requirements. This test has not been cleared or approved by the U.S. Food and Drug Administration. Test Performed by: [facility] - [address] [address] [employer]: Rob Delatorre II, M.D., Ph.D. 19 *Ascorbic acid is present which may interfere with detection of blood. 20 Adult Reference Ranges for Cortisol, Free, LC/MS/MS: 8:00 - 10:00 AM 0.07-0.93 mcg/dL 4:00 - 6:00 PM 0.04-0.45 mcg/dL 10:00 - 11:00 PM 0.04-0.35 mcg/dL This test was developed and its analytical performance characteristics have been determined by [facility]. It has not been cleared or approved by FDA. This assay has been validated pursuant to the CLIA regulations and is used for clinical purposes. Test Performed by: [facility] [address] [facility] [place] [address] 21 Normal Range 180 to 914 Indeterminate Range 145 to 180 Deficient Range <145 22 Because ethnic data is not always readily available, this report includes an eGFR for both -Americans and non- Americans. The National Kidney Disease Education Program (NKDEP) does not endorse the use of the MDRD equation for patients that are not between the ages of 18 and 70, are , have extremes of body size, muscle mass, or nutritional status, or are non- or non-. According to the National Kidney Foundation, irrespective of diagnosis, the stage of the disease is based on the level of kidney function: Stage Description GFR(mL/min/1.73 m(2)) 1 Kidney damage with normal or decreased GFR 90 2 Kidney damage with mild decrease in GFR 60-89 3 Moderate decrease in GFR 30-59 4 Severe decrease in GFR 15-29 5 Kidney failure <15 (or dialysis) 23 Interpretation: Positive (>=1.0) REFERENCE VALUE <1.0 (Negative) Test Performed by: [place] [address] [employer]: Rob Delatorre II, M.D., Ph.D. 24 REFERENCE VALUE <1.0 (Negative) Test Performed by: [place] [address] [employer]: Rob Delatorre II, M.D., Ph.D. 25 Acute inflammation: >10.00 26 Please check this week 27 Normal Range 180 to 914 Indeterminate Range 145 to 180 Deficient Range <145 28 Because ethnic data is not always readily available, this report includes an eGFR for both -Americans and non- Americans. The National Kidney Disease Education Program (NKDEP) does not endorse the use of the MDRD equation for patients that are not between the ages of 18 and 70, are , have extremes of body size, muscle mass, or nutritional status, or are non- or non-. According to the National Kidney Foundation, irrespective of diagnosis, the stage of the disease is based on the level of kidney function: Stage Description GFR(mL/min/1.73 m(2)) 1 Kidney damage with normal or decreased GFR 90 2 Kidney damage with mild decrease in GFR 60-89 3 Moderate decrease in GFR 30-59 4 Severe decrease in GFR 15-29 5 Kidney failure <15 (or dialysis) 29 Serologic response to B. burgdorferi infection is not detected, but cannot rule out early infection during which low or undetectable antibody levels to B. burgdorferi may be present. If clinically indicated, a new serum specimen should be submitted in 7-14 days. Test Performed by: [place] [address] [employer]: Wayne Sandoval III, M.D. Procedures Date CPT Code Description Status Comment 07/15/2016 Diabetic Retinal Eye Exam Completed Document: 07/15/16 - Consult Ophthalmology Nancie Molina 04/15/2016 Diabetic Retinal Eye Exam Completed Document: 04/15/16 - Consult Ophthalmology - Jesse 01/23/2016 62476 EKG Tracing & Completed Interpretation 11/29/2014 96506 Cardiac Event Monitor Completed 07/25/2014 04592 Treadmill Interp/Report Only Completed 07/25/2014 32847 Stress Test Supervsn W/Out Completed I/R 07/24/2014 02588 Holter Monitoring 24 HR New Completed 07/20/2014 53270 Holter Monitoring 24 HR New Completed 07/09/2014 44179 EKG Tracing & Completed Interpretation Encounters Type Date Location Provider CPT E/M Dx Office Visit 02/08/2017 [facility] Larson M.D. 84496 M35.01 9:40a [facility] E55.9 D64.9 Z79.899 Office Visit 12/24/2016 11:20a [facility] Larson M.D. 95378 Z23 [facility] D64.9 E55.9 M35.01 R94.6 Office Visit 12/09/2016 11:40a [facility] Larson 32299 M35.01 [facility] [place] R74.0 Z79.899 E55.9 R20.8 M54.5 Office Visit 09/23/2016 10:40a [facility] Larson 75483 M35.01 [facility] Z79.899 E55.9 D64.9 R20.8 Office Visit 06/15/2016 4:40p [facility] Mendel Lasron 13466 M35.01 [facility] Z79.899 E55.9 D64.9 Office Visit 04/16/2016 11:20a [facility] Larson 33333 M35.01 [facility] [place] Z79.899 Office Visit 02/14/2016 12:00p [facility]el Larson 65129 M35.01 [facility] Arellano.Anna Z79.899 E55.9 H93.11 Z23 Office Visit 01/23/2016 1:45p [facility] Migdalia Gant M.D. 75800 G90.4 [facility] R00.2 Office Visit 08/23/2015 12:00p [facility] Mendel Larson 00692 M35.01 Of [facility] Z79.899 R20.8 R76.0 E55.9 Office Visit 01/22/2015 1:45p [facility] Migdalia Gant M.D. 08514 I49.3 [facility] Office Visit 08/10/2014 10:30a [facility] Migdalia Gant M.D. 91193 785.1 [facility] 268.9 Office Visit 07/09/2014 10:00a [facility] Migdalia Gant M.D. 43764 785.1 [facility] Office Visit 04/19/2014 10:45a [facility] Christopher Valera M.D. 26864 729.5 C.M.A. Plan of Care Future Appointment(s):10/04/2017 11:00 am - Mendel Larson M.D. at [facility]05/11/2017 - Mendel Larson M.D.M35.01 Sicca syndrome with bxaclysmcotcggyyvbqkM37.9 Vitamin D deficiency, afjecwtagicK11.9 Anemia, vgckykdumnvH86.899 Other emt intermediate (current) drug therapyFollow up:Follow up in 4 to 5 months or sooner if needed
--- OUTSIDE RECORDS SUMMARY | 2017-05-13 14:28 | XMS REPORT ---
:1980 External Reference #:[id number] Author Organization [facility] Address [address] [place] [address] Phone [phone] Care Team Providers Name Role Phone Marah Gallagher MD Care Team Information Interactive Developer Unavailable Payers Type Date Identification Numbers Payment Provider Subscriber Commercial PayID: [id number] [employer] Ppo Juan Carlos Aquino [address] [place] [address] Problems Date Description Provider Status Onset: 01/23/2016 Autonomic dysreflexia Migdalia Gant Active Onset: 07/09/2014 Palpitations Migdalia Gant Active Family History Date Family Member(s) Problem(s) Comments Father TIA Mother Heart Disease Heart Valve Issues Children None Siblings None First Brother Hepatitis C Drug Use, Half Brother Paternal Grandfather due to Hepatitis () - C, Blood Transfusion Paternal Grandmother due to Stroke () Maternal Grandfather due to Pneumonia () - Fall Maternal Grandmother due to Alzheimer's () Disease Maternal Aunts Breast Cancer (Great Aunt) Social History Type Date Description Comments Education Highest Level Completed, Master's Degree Marital Status Lives With Diet Patient is on a gluten-free diet Diet Patient is on a low carb diet Occupation [employer] Cigarette Use Never Smoked Cigarettes ETOH Use Denies alcohol use Recreational Drug Use Denies Drug Use Smoking Patient has never smoked Daily Caffeine Does Drink Caffeine Not regularly Exercise Type/Frequency Exercises regularly Seat Belt/Car Seat Always uses seat belt Currently Active Patient is currently not sexually active STD's No STD History Allergies, Adverse Reactions, Alerts Date Description Reaction Status Severity Comments 08/10/2014 Lactose active 08/10/2014 Gluten ( Intolerance) active 06/12/2014 Erythromycin active 06/12/2014 Prednisone agitation active Severe 04/21/2017 Serotonin Reuptake Inhibitors (SSRIs) active Medications Medication Date Status Form Strength Qnty SIG Indications Ordering Provider Iron Up Active Liquid 10mL daily Unknown 017 Melatonin Active Capsules 3mg 90caps 1 by mouth Unknown 000 every night at bedtime Tylenol Extra Active Tablets 500mg 2 by mouth Unknown Strength 000 as needed-shahram katy Plaquenil Active Tablets 200mg 90tabs take 1 Unknown 000 tablet by mouth every day Vitamin D3 Active Capsules 5000Unit 1 by mouth Unknown Ultra 000 every Strength other day Ativan Active Tablets 0.2mg 1 po qd Unknown 000 Medications Administered in Office Medication Date Status Form Strength Qnty SIG Indications Ordering Provider PT SCRN Tbco Administered Injection Phaelon Id as Non User 018 MD Betina Immunizations CPT Code Status Date Vaccine Lot # [id number] Given 12/24/2016 Influenza Virus Vaccine, Quadrivalent, Split, Preservative Free Vital Signs Date Vital Result Comment 04/21/2017 BP Systolic 94 mmHg BP Diastolic 76 mmHg Height 63 inches 5'3" Weight 125.00 lb BMI (Body Mass Index) 22.1 kg/m2 Last Menstrual Period [id number] 0 02/08/2017 Heart Rate 86 /min Respiratory Rate 14 /min Height 63.5 inches Weight 126.00 lb BMI (Body Mass Index) 22.0 kg/m2 12/24/2016 Heart Rate 75 /min Respiratory Rate 14 /min Height 63.5 inches Weight 126.00 lb BMI (Body Mass Index) 22.0 kg/m2 12/09/2016 Heart Rate 90 /min Respiratory Rate 14 /min Height 63.5 inches Weight 124.38 lb BMI (Body Mass Index) 21.7 kg/m2 Results Test Date Test Result H/L Range Note Laboratory test finding 12/24/2016 Thyroperoxidase AB 0.61 IU/mL <9 Iron & Iron Binding 12/24/2016 % Iron Saturation 8 % Low 15-55 Capacity Iron 38 g/dL Low 50-212 Total Iron Binding Capacity 452 g/dL High 250-450 Unsaturated Iron Binding 414 g/dL Vitamin D 1,25 And Vitamin D,2 12/24/2016 Vitamin D Total 25(Oh) 36.2 ng/mL 20-50 1 Vitamin D, 1,25 Dihydroxy 60 pg/mL 18-78 Laboratory test finding 12/10/2016 Albumin 4.6 g/dL 3.2-5.2 Albumin/Globulin Ratio 1.6 1 1-3 Alkaline Phosphatase 41 U/L 34-104 Alt 17 U/L 7-52 Ast 25 U/L 13-39 Creatine Kinase(CK) 61 U/L 10-223 Direct Bilirubin 0.10 mg/dL 0.03-0.18 Erythrocyte Sed Rate 16 mm/Hr High 0-14 Globulin 2.9 g/dL 2-4 Indirect Bilirubin 0.3 mg/dL 0.3-1.0 Pyridoxal 5-Phosphate 90 ug/L 5-50 2 Pyridoxic Acid 34 ug/L 3-30 3 T3 Free 4.20 pg/mL High 2.5-3.9 4 Total Bilirubin 0.40 mg/dL 0.2-1.0 Total Protein 7.5 g/dL 6.4-8.9 Vitamin B1 (Whole Blood) 131 nmol/L 70-180 Vitamin B12 662 pg/mL 180-914 Laboratory test finding 06/06/2016 Albumin 3.9 g/dL 3.2-5.2 Albumin/Globulin Ratio 1.5 1 1-3 Alkaline Phosphatase 41 U/L 34-104 Alt 19 U/L 7-52 Anion Gap 4 mmol/L 2-11 Ast 23 U/L 13-39 BUN/Creatinine Ratio 23.7 1 High 8-20 Blood Urea Nitrogen 18 mg/dL 6-24 Calcium 9.2 mg/dL 8.6-10.3 Chloride 105 mmol/L 101-111 Co2 Carbon Dioxide 28 mmol/L 22-32 Creatinine 0.76 mg/dL 0.51-0.95 Egfr 110.7 1 >60 Egfr Non- 86.1 1 >60 Erythrocyte Sed Rate 13 mm/Hr 0-14 5 Globulin 2.6 g/dL 2-4 Glucose 76 mg/dL 70-100 Potassium 3.6 mmol/L 3.5-5.0 Sodium 137 mmol/L 133-145 6 Total Bilirubin 0.30 mg/dL 0.2-1.0 Total Protein 6.5 g/dL 6.4-8.9 Vitamin B12 697 pg/mL 180-914 7 CBC Auto Diff 06/06/2016 Abs Basophils 0 10^3/uL 0-0.2 Abs Eosinophils 0.1 10^3/uL 0-0.6 Abs Lymphocytes 1.3 10^3/uL 1.0-4.8 Abs Monocytes 0.5 10^3/uL 0-0.8 Abs Neutrophils 1.9 10^3/uL 1.5-7.7 Abs Nucleated RBC 0 10^3/uL Basophil % 0.8 % 0-2 Eosinophil % 2.9 % 0-6 Granulocyte % 50.9 % 38-83 Hematocrit 34 % Low 35-47 Hemoglobin 11.4 g/dL Low 12.0-16.0 Lymphocyte % 33.3 % 25-47 Mean Corpuscular HGB Conc 33 g/dL 31-36 Mean Corpuscular Hemoglobin 27 pg 27-31 Mean Corpuscular Volume 80 fL 80-97 Mean Platelet Volume 8 um3 7.4-10.4 Monocyte % 12.1 % High 1-9 Nucleated Red Blood Cells % 0.1 1 Platelet Count 195 10^3/uL 150-450 Red Blood Count 4.28 10^6/uL 4.0-5.4 Red Cell Distribution Width 14 % 10.5-15 White Blood Count 3.8 10^3/uL 3.5-10.8 Vitamin D 1,25 And Vitamin 06/06/2016 Vitamin D Total 25(Oh) 21.7 ng/mL Low 30-50 8 D,2 Vitamin D, 1,25 Dihydroxy 53 pg/mL 18-78 9 1 ADDITIONAL INFORMATION This test was developed and its performance characteristics determined by [facility] in a manner consistent with CLIA requirements. This test has not been cleared or approved by the U.S. Food and Drug Administration. Test Performed by: [facility] [employer] [facility] [address] [place] [address] 2 In this sample, the increased pyridoxal 5-phosphate is likely related to dietary supplementation; however a mild expression of hypophosphatasia cannot be excluded. Consider analysis of serum alkaline phosphatase isoenzymes and urinary phosphoethanolamine. ADDITIONAL INFORMATION This test was developed and its performance characteristics determined by [facility] in a manner consistent with CLIA requirements. This test has not been cleared or approved by the U.S. Food and Drug Administration. 3 ADDITIONAL INFORMATION This test was developed and its performance characteristics determined by [facility] in a manner consistent with CLIA requirements. This test has not been cleared or approved by the U.S. Food and Drug Administration. Test Performed by: [facility] [employer] [address] [place] [address] 4 Normal Range 180 to 914 Indeterminate Range 145 to 180 Deficient Range <145 5 Please check 2 days before her visit 6 Because ethnic data is not always readily [...] 15-29 5 Kidney failure <15 (or dialysis) 7 Normal Range 180 to 914 Indeterminate Range 145 to 180 Deficient Range <145 8 Please check 2 days before her visit 9 ADDITIONAL INFORMATION This test was developed and its performance characteristics determined by [facility] in a manner consistent with CLIA requirements. This test has not been cleared or approved by the U.S. Food and Drug Administration. Test Performed by: [address] [address] Procedures Date CPT Code Description Status Comment 03/29/2007 Colonoscopy Completed Sigmoidoscopy Encounters Type Date Location Provider CPT E/M Dx Office Visit 04/21/2017 11:00a [place] [address] E61.1 Plan of Care No Information Available
[2017-05-13 15:16] LABS: EGFR Non-African American 68.7 (>60)
[2017-05-13 16:36] VITALS: BP 103/58
--- NOTE | 2017-05-13 16:45 | ED ---
Esteban Oliva Jennifer, scribed for Jigar Mora MD on 05/13/17 at 1352 . HPI Chest Pain - HPI Summary HPI Summary: The patient is a 36 year old female who presents to the ED with chest palpitations and indigestion for five days. The indigestion is constant, but the palpitations have been increasing in frequency. She denies nausea and shortness of breath. She reports that she is relatively healthy and does cardio every day. The patient has a history of Sjogrens disease and anxiety disorder. - History of Current Complaint Chief Complaint: EDChestPainROMI Time Seen by Provider: 05/13/17 13:38 Hx Obtained From: Patient Hx Last Menstrual Period: started January 16 Pain Intensity: 3 - Allergy/Home Medications Allergies/Adverse Reactions: Allergies Allergy/AdvReac Type Severity Reaction Status Date / Time MS Lactose Intolerance (GI) Allergy Severe Diarrhea Verified 12/02/15 13:14 [Lactose Intolerance (GI)] MS Prednisone [Prednisone] AdvReac Severe Altered Verified 01/25/16 09:38 Mental Status MS Erythromycin AdvReac vomiting, Verified 01/25/16 09:38 [Erythromycin] shaking MS Gluten Meal [Gluten Meal] AdvReac See Comment Verified 12/02/15 13:14 orthotricyclen Allergy Hives Uncoded 12/02/15 13:14 sris AdvReac Unknown Uncoded 01/25/16 09:38 Reaction Details Home Medications: Home Medications 5-Hydroxytryptophan (5-Htp) [5-Htp] 50 mg PO DAILY 05/13/17 [History Confirmed 05/13/17] Acetaminophen [Acetaminophen Extra Strength] 500 mg PO Q6HR PRN 05/13/17 [ History Confirmed 05/13/17] Cholecalciferol TAB* [Vitamin D TAB*] 1,000 unit PO DAILY 05/13/17 [History Confirmed 05/13/17] Ferrous Sulfate LIQ* [Feosol LIQ*] 300 mg PO DAILY 05/13/17 [History Confirmed 05/13/17] Ibuprofen TAB* [Advil TAB*] 200 mg PO Q8H PRN 05/13/17 [History Confirmed ] LORazepam TAB(*) [Ativan 0.5 MG TAB (*)] 0.25 mg PO DAILY 05/13/17 [History Confirmed 05/13/17] Melatonin (NF) [Meladox] 3 mg PO BEDTIME 05/13/17 [History Confirmed 05/13/17] PMH/Surg Hx/FS Hx/Imm Hx Endocrine/Hematology History: Denies: Hx Anticoagulant Therapy, Hx Diabetes, Hx Thyroid Disease Cardiovascular History: Denies: Hx Angina, Hx Congestive Heart Failure, Hx Coronary Artery Disease, Hx Deep Vein Thrombosis, Hx Hypercholesterolemia, Hx Hypertension, Hx Myocardial Infarction, Hx Pacemaker/ICD, Hx Valvular Heart Disease Respiratory History: Denies: Hx Asthma, Hx Chronic Obstructive Pulmonary Disease (COPD), Hx Lung Cancer, Hx Pneumonia, Hx Pulmonary Embolism GI History: Reports: Other GI Disorders - HX OF C-DIFF Denies: Hx Gall Bladder Disease, Hx Gastrointestinal Bleed, Hx Ulcer, Hx Urosepsis History: Denies: Hx Dialysis, Hx Kidney Stones, Hx Renal Disease, Other Problems/ Disorders Musculoskeletal History: Denies: Hx Scoliosis Sensory History: Denies: Hx Hearing Aid Neurological History: Reports: Hx Headaches, Other Neuro Impairments/Disorders - HX OF FIBROMYALGIA Denies: Hx Dementia, Hx Migraine, Hx Seizures, Hx Transient Ischemic Attacks (TIA) Psychiatric History: Reports: Hx Anxiety, Hx Depression Denies: Hx Panic Disorder, Hx Schizophrenia, Hx Bipolar Disorder - Surgical History Surgery Procedure, Year, and Place: CYSTOSCOPY ; SIGNMOIDSCOPY ; ENDOSCOPY - Immunization History Date of Tetanus Vaccine: Unknown Infectious Disease History: No Infectious Disease History: Reports: Hx Clostridium Difficile - Apr,May,Jun 2008 Denies: Hx Hepatitis, Hx Human Immunodeficiency Virus (HIV), Hx of Known/ Suspected MRSA, Hx Shingles, Hx Tuberculosis, Hx Known/Suspected VRE, Hx Known/ Suspected VRSA, History Other Infectious Disease, Traveled Outside the [place] in Last 30 Days - Family History Known Family History: Positive: Cardiac Disease, Other - lupus Negative: Hypertension - Social History Alcohol Use: None Substance Use Type: Reports: None, Prescribed Smoking Status (MU): Never Smoked Tobacco Review of Systems Positive: Chest Pain Negative: Shortness Of Breath Positive: Other - Indigestion. Negative: Nausea All Other Systems Reviewed And Are Negative: Yes Physical Exam - Summary Physical Exam Summary: Appearance: The patient is well-nourished in no acute distress and in no acute pain. Skin: The skin is warm and dry and skin color reflects adequate perfusion. HEENT: ~The head is normocephalic and atraumatic. The pupils are equal and reactive. The conjunctivae are clear and without drainage. ~Nares are patent and without drainage. ~Mouth reveals moist mucous membranes and the throat is without erythema and exudate. ~The external ears are intact. The ear canals are patent and without drainage. The tympanic membranes are intact. Neck: the neck is supple with full range of motion and non-tender. There are no carotid bruits. ~There is no neck vein distension. Respiratory: Chest is non-tender. ~Lungs are clear to auscultation and breath sounds are symmetrical and equal. Cardiovascular: Heart is regular rate and rhythm. ~There is no murmur or rub auscultated. ~~There is no peripheral edema and pulses are symmetrical and equal. Abdomen: The abdomen is soft and non-tender. ~There are normal bowel sounds heard in all four quadrants and there is no organomegaly palpated. Musculoskeletal: There is no back tenderness noted. ~Extremities are non-tender with full range of motion. ~There is good capillary refill. ~There is no peripheral edema or calf tenderness elicited. Neurological: Patient is alert and oriented to person, place and time. ~The patient has symmetrical motor strength in all four extremities. ~Cranial nerves are grossly intact. Deep tendon reflexes are symmetrical and equal in all four extremities. Psychiatric: The patient has an appropriate affect and does not exhibit any anxiety or depression. Triage Information Reviewed: Yes Vital Signs On Initial Exam: Initial Vitals Temp Pulse Resp BP Pulse Ox 98.3 F 98 17 129/75 100 05/13/17 13:27 05/13/17 13:27 05/13/17 13:27 05/13/17 13:27 05/13/17 13:27 Vital Signs Reviewed: Yes Diagnostics - Vital Signs Vital Signs Temp Pulse Resp BP Pulse Ox 05/13/17 13:27 98.3 F 98 17 129/75 100 - Laboratory Lab Results: Lab Results 05/13/17 05/13/17 05/13/17 Range/Units 14:08 14:08 14:08 WBC 4.0 (3.5-10.8) 10^3/ul RBC 4.29 (4.0-5.4) 10^6/ul Hgb 12.5 (12.0-16.0) g/dl Hct 37 (35-47) % MCV 86 (80-97) fL MCH 29 (27-31) pg MCHC 34 (31-36) g/dl RDW 14 (10.5-15) % Plt Count 192 (150-450) 10^3/ul MPV 8 (7.4-10.4) um3 Neut % (Auto) 62.7 (38-83) % Lymph % (Auto) 25.5 (25-47) % Nye % (Auto) 9.6 H (1-9) % Eos % (Auto) 1.3 (0-6) % Baso % (Auto) 0.9 (0-2) % Absolute Neuts (auto) 2.5 (1.5-7.7) 10^3/ul Absolute Lymphs (auto) 1.0 (1.0-4.8) 10^3/ul Absolute Monos (auto) 0.4 (0-0.8) 10^3/ul Absolute Eos (auto) 0.1 (0-0.6) 10^3/ul Absolute Basos (auto) 0 (0-0.2) 10^3/ul Absolute Nucleated RBC 0 10^3/ul Nucleated RBC % 0 Sodium 135 (133-145) mmol/L Potassium 3.8 (3.5-5.0) mmol/L Chloride 102 (101-111) mmol/L Carbon Dioxide 27 (22-32) mmol/L Anion Gap 6 (2-11) mmol/L BUN 16 (6-24) mg/dL Creatinine 0.92 (0.51-0.95) mg/dL Est GFR ( Amer) 88.3 (>60) Est GFR (Non-Af Amer) 68.7 (>60) BUN/Creatinine Ratio 17.4 (8-20) Glucose 95 (70-100) mg/dL Lactic Acid 0.7 (0.5-2.0) mmol/L Calcium 9.8 (8.6-10.3) mg/dL Magnesium 1.9 (1.9-2.7) mg/dL Total Bilirubin 0.40 (0.2-1.0) mg/dL AST 21 (13-39) U/L ALT 11 (7-52) U/L Alkaline Phosphatase 39 (34-104) U/L Troponin I 0.00 (<0.04) ng/mL Total Protein 6.7 (6.4-8.9) g/dL Albumin 4.0 (3.2-5.2) g/dL Globulin 2.7 (2-4) g/dL Albumin/Globulin Ratio 1.5 (1-3) TSH 0.86 (0.34-5.60) mcIU/mL Beta HCG, Quant < 0.60 mIU/mL Result Diagrams: 05/13/17 14:08 05/13/17 14:08 Lab Statement: Any lab studies that have been ordered have been reviewed, and results considered in the medical decision making process. - EKG 13:29 Cardiac Rate: NL EKG Rhythm: Sinus Rhythm - 99 BPM Chest Pain Course/Dx - Course Course Of Treatment: Ms. Aquino presented with 5 days of constant ' indigestion' and intermittent episodes of irregular palpitations. She is mostly worried about the palpitations. Her W/U was negative here and she has a long history of PVCs and PACs which she had here on the monitor. I'm not sure about her indigestion but she does take ibuprofen daily. She is on medicatons for autoimmune disease and I would prefer that Dr. Larson be involved in any medication changes along that line. - Diagnoses Provider Diagnoses: Palpitations, Anxiety Discharge - Discharge Plan Condition: Stable Disposition: HOME Patient Education Materials: Heart Palpitations (ED), Anxiety (ED) Referrals: Migdalia Gant MD [Medical Doctor] - 3 Days Additional Instructions: Follow up with Dr. Gant, cardiology, in three days. Return to the emergency department for any new or worsening symptoms. The documentation as recorded by the Esteban levy Jennifer accurately reflects the service I personally performed and the decisions made by me, Jigar Mora MD.
== END 2017-05-13 16:35 | disposition home or self-care (01) ==
LOC: ED 13:25
DX: R00.2 Palpitations (principal); F41.9 Anxiety disorder, unspecified; Z88.3 Allergy status to other anti-infective agents; Z88.8 Allergy status to other drugs, medicaments and biological substances
CPT/HCPCS: 36415; 80053; 83605; 83735; 84443; 84484; 84702; 85025; 93005; 99282

== ENCOUNTER 2017-12-13 07:27 | Emergency (ER) | payer OTHER ==
--- OUTSIDE RECORDS SUMMARY | 2017-12-13 07:33 | XMS REPORT ---
:1980 External Reference #:[id number] Author Organization Alejanrdo Esparza M.D., [facility] Address [address] [place] [address] Phone [phone] Care Team Providers Name Role Phone Ana Gunn Care Team Information Induction Machine Setter Unavailable Alex CHANDLER, Jonathan Primary Care Physician Unavailable Payers Type Date Identification Numbers Payment Provider Subscriber Health Maintenance Policy Number: [employer] Pos Juan Carlos Narr[employer]sumanChristianaCare (O) [id number] PayID: [id number] [address] [place] [address] Problems Date Description Provider Status Onset: 09/08/2013 Vitreous opacities Jesse Rutledge O.D. Active Onset: 09/08/2013 Myopia Jesse Rutledge O.D. Active Onset: 09/08/2013 Regular astigmatism Jesse Rutledge O.D. Active Onset: 09/08/2013 Visual disturbance Jesse Rutledge O.D. Active Onset: 03/12/2014 Taking medication Jesse Rutledge O.D. Active Family History Date Family Member(s) Problem(s) Comments General Thyroid Disease General Arthritis General Cataract General Cancer General Heart Disease Father Noncontributory Mother Noncontributory Social History Type Date Description Comments ETOH Use Never used alcohol Smoking Patient has never smoked Allergies, Adverse Reactions, Alerts Date Description Reaction Status Severity Comments 09/08/2013 Serotonin Reuptake Inhibitors (SSRIs) active 09/08/2013 Cyclobenzaprine active 09/08/2013 Prednisone active Medications Medication Date Status Form Strength Qnty SIG Indications Ordering Provider Hydroxychloroquine /0 Active Tablets 200mg Unknown Sulfate 000 Lorazepam 0 Active Tablets 1mg Fitzsimmon 000 sAtifa Lorazepam 00/00/0 Active Tablets 0.5mg Fitzsimmon 000 s, Ana Ketoconazole 00/00/0 Hx Cream 2% Unknown 000 - 018 Proair HFA 00/0 Hx Aerosol 108(90Base) Unknown 000 - mcg/Act 018 Vital Signs Date Vital Result Comment 10/29/2017 Intraocular Pressure Right Eye 15 mmHg Intraocular Pressure Left Eye 15 mmHg 04/15/2016 Intraocular Pressure Right Eye 15 mmHg Intraocular Pressure Left Eye 15 mmHg 09/10/2014 Intraocular Pressure Left Eye 14 mmHg Results Description No Information Procedures Date CPT Code Description Status 10/29/2017 46590 Fundus Photography W/Interpretation & Report Completed 10/29/2017 80688 Refraction Completed 10/29/2017 12520 Eye Exam Est Intermediate Completed 07/15/2016 96641 Oct Retina Completed 07/15/2016 86745 Visual Field Exam Extended, Unilateral Or Bilateral Completed 07/15/2016 86187 Eye Exam Est Intermediate Completed 04/15/2016 72499 Fundus Photography W/Interpretation & Report Completed 04/15/2016 34702 Refraction Completed 04/15/2016 20268 Eye Exam Est Comprehensive Completed 03/13/2015 11643 Oct Retina Completed 03/13/2015 03513 Visual Field Exam Extended, Unilateral Or Bilateral Completed 03/13/2015 92183 Eye Exam Est Intermediate Completed 09/10/2014 00464 Refraction Completed 09/10/2014 88119 Eye Exam Est Comprehensive Completed 03/12/2014 42653 Eye Exam Est Intermediate Completed 03/12/2014 99489 Visual Field Exam Extended, Unilateral Or Bilateral Completed 03/12/2014 17513 Oct Retina Completed 09/08/2013 03253 Fundus Photography W/Interpretation & Report Completed 09/08/2013 63318 Refraction Completed 09/08/2013 67326 Eye Exam Est Comprehensive Completed 04/13/2011 70674 Visual Field Exam Extended, Unilateral Or Bilateral Completed 04/13/2011 42898 Eye Exam Est Intermediate Completed 02/11/2011 48421 Refraction Completed 02/11/2011 50333 Eye Exam Est Comprehensive Completed 10/31/2010 01439 Eye Exam Est Intermediate Completed 08/11/2010 82148 Visual Field Exam Extended, Unilateral Or Bilateral Completed 08/11/2010 23982 Eye Exam Est Comprehensive Completed 07/22/2010 25579 Eye Exam Est Intermediate Completed 03/05/2010 06620 Visual Field Exam Extended, Unilateral Or Bilateral Completed 03/05/2010 02360 Eye Exam Est Intermediate Completed 02/01/2010 36754 Eye Exam New Comprehensive Completed Encounters Type Date Location Provider CPT E/M Office Visit 10/13/2010 3:00p Main Office DR. Mallika Donato O.D. [address]
--- NOTE | 2017-12-13 08:08 | UC ---
Complaint Female HPI - HPI Summary HPI Summary: 37 yo female presents with dull ache in pelvic region b/l for the last 3-4 days. She tells me that she has a hx of SAPNA and heavy menstrual bleeding with pain - had a transvaginal US beginning of October this year which revealed a fibroid and thickened endometrium - per pt. They scheduled her for a "vaginal scope" for early december. She is on day 17 of her cycle, but her pelvic aches feels "hormonal" and similar to her discomfort around the time she is menstruating. This discomfort is accompanied by nausea. She also notes that over the last few months her BMs have been alternating with 2-3 days of constipation with a day of many loose stools. Denies fever, chills, trauma, abdominal pain, vomiting, dysuria, hematuria, flank pain, vaginal discharge/ bleeding. - History Of Current Complaint Chief Complaint: UCAbdominalPain Stated Complaint: PELVIC PAIN AND NAUSEA Time Seen by Provider: 12/13/17 08:06 Hx Obtained From: Patient Hx Last Menstrual Period: 17 days ago Onset/Duration: Gradual Onset Timing: Constant Severity Initially: Mild Severity Currently: Mild Pain Intensity: 3 Pain Scale Used: 0-10 Numeric - Allergies/Home Medications Allergies/Adverse Reactions: Allergies Allergy/AdvReac Type Severity Reaction Status Date / Time erythromycin base Allergy Vomiting Verified 12/13/17 07:46 [From Erythrocin] lactose Allergy Diarrhea Verified 12/13/17 07:46 prednisone Allergy Altered Verified 12/13/17 07:46 Mental Status orthotricyclen Allergy Hives Uncoded 12/02/15 13:14 ssri Allergy Nausea Uncoded 12/13/17 07:46 PMH/Surg Hx/FS Hx/Imm Hx Psychological History: Anxiety, Depression Other History Of: Negative For: HIV, Hepatitis B, Hepatitis C, Anticoagulant Therapy - Surgical History Surgical History: Yes Surgery Procedure, Year, and Place: CYSTOSCOPY ; SIGNMOIDSCOPY ; ENDOSCOPY - Family History Known Family History: Positive: Cardiac Disease, Other - lupus Negative: Hypertension - Social History Lives: With Family Alcohol Use: None Substance Use Type: None Smoking Status (MU): Never Smoked Tobacco - Immunization History Most Recent Influenza Vaccination: never Most Recent Tetanus Shot: unknown Most Recent Pneumonia Vaccination: never Review of Systems Constitutional: Negative Skin: Negative Respiratory: Negative Cardiovascular: Negative Gastrointestinal: Abdominal Pain, Nausea Genitourinary: Negative Motor: Negative Neurological: Negative Psychological: Negative All Other Systems Reviewed And Are Negative: Yes Physical Exam - Summary Physical Exam Summary: GENERAL: NAD. WDWN. No pain distress. SKIN: No rashes, sores, lesions, or open wounds. NECK: Supple. Nontender. No lymphadenopathy. CHEST: CTAB. No r/r/w. No accessory muscle use. Breathing comfortably and in no distress. CV: RRR. Without m/r/g. Pulses intact. Cap refill <2seconds ABDOMEN: Soft. NTTP. No distention or guarding. No CVA tenderness. Bowel sounds present NEURO: Alert. PSYCH: Age appropriate behavior. Triage Information Reviewed: Yes Vital Signs: Initial Vital Signs Temp 98.6 F 12/13/17 07:35 Pulse 92 12/13/17 07:35 Resp 18 12/13/17 07:35 BP 126/71 12/13/17 07:35 Pulse Ox 100 12/13/17 07:35 Laboratory Tests 12/13/17 12/13/17 08:58 08:59 POC Urine Color Yellow POC Urine Clarity Clear POC Urine pH 7.0 POC Ur Specif Sun 1.025 POC Urine Protein Negative POC Ur Glucose (UA) Negative POC Urine Ketones Negative POC Urine Blood Negative POC Urine Nitrite Negative POC Urine Bilirubin Negative POC Urine Urobilinogen 1.0 POC U Leukocyte Esteras Negative POC Ur Test Negative Vital Signs Reviewed: Yes Pelvic Exam: Positive: External Exam Normal, Other - Unable to be performed due to discomfort. Sarah JAVED assisted with exam. Negative: Lesions Complaint Female Dx - Course Course Of Treatment: UA and preg negative. Pelvic exam was attemped, but pt could not tolerated the speculum or bimanual exam. I called her OB ([facility] ) and spoke with one of the camera repairman who was familiar with the pt. She advised to hold off on repeating an ultrasound today and to have pt f/u with their office where they can perform another ultrasound and further evaluate her. Pt was agreeable to this. Will dc with an rx for Zofran as she has been nauseous. Advised to go to ED if symptoms worsen or if she develops a fever, vomiting, or abnormal vaginal bleeding. - Differential Dx/Diagnosis Provider Diagnoses: Pelvic pain Discharge - Sign-Out/Discharge Documenting (check all that apply): Patient Departure All imaging exams completed and their final reports reviewed: No Studies - Discharge Plan Condition: Stable Disposition: HOME Prescriptions: Ondansetron ODT TAB* [Zofran 4 MG Odt TAB*] 4 mg PO Q8H PRN #9 tab.odt PRN Reason: Nausea Patient Education Materials: Pelvic Pain in Women (ED) Referrals: Jonathan Johnson MD [Primary Care Provider] - Additional Instructions: If you develop a fever, shortness of breath, chest pain, new or worsening symptoms - please call your PCP or go to the ED. 1) Please call your OBGYN to schedule a follow up appointment as soon as possible for further evaluation - Billing Disposition and Condition Condition: STABLE Disposition: Home - Attestation Statements Provider Attestation: Per institutional requirements, I have reviewed the chart, however, I was not consulted specifically or made aware of this patient by the midlevel provider. I did not personally evaluate, interact with , or disposition this patient.
[2017-12-13 09:46] VITALS: BP 116/64
== END 2017-12-13 09:43 | disposition home or self-care (01) ==
LOC: UCEAST 07:27
CPT/HCPCS: 81003; 84702; 99212; G0463

== ENCOUNTER 2018-03-31 15:13 | Emergency (ER) | payer OTHER ==
--- OUTSIDE RECORDS SUMMARY | 2018-03-31 15:20 | XMS REPORT ---
:1980 Author Organization [facility] Address [address] [place] [address] Care Team Providers Name Role Phone Susana Arellano Unavailable Unavailable PROBLEMS Type Condition ICD9-CM [id number] Onset Condition SNOMED Code Code Code Dates Status Problem Migraine with aura, G43.109 Active 9486980 not intractable, without status migrainosus Problem Superficial N94.11 Active 94118334 (introital) dyspareunia Problem Anal spasm K59.4 Active 04069057 Problem Hyperprolactinemia E22.1 Active 372235620 Problem Abnormal findings on R93.8 Active 267978866 diagnostic imaging of other specified body structures Problem Other specified N93.8 Active 424608933 abnormal uterine and vaginal bleeding Problem Dysmenorrhea, N94.6 Active 887259519 unspecified Problem Sexual dysfunction, R37 Active 89333747 unspecified Problem Leiomyoma of uterus, D25.9 Active 27683280 unspecified ALLERGIES No Information ENCOUNTERS Encounter Location Date Diagnosis [address] Apr[facility] [address] [place], [place] [id number] [facility] Feb, [place] [id number] [facility] [address] Jan, OBGYN [place], [place] [id number] [address] Jan, Other specified abnormal [facility] [address] [place], uterine and vaginal bleeding [place] [id number] N93.8 ; Dysmenorrhea, unspecified N94.6 ; Hyperprolactinemia E22.1 ; Superficial (introital) dyspareunia N94.11 ; Anal spasm K59.4 ; Abnormal findings on diagnostic imaging of other specified body structures R93.8 ; Sexual dysfunction, unspecified R37 ; Leiomyoma of uterus, unspecified D25.9 and 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 [facility] 103 Jan, [place] [id number] [facility] Jan, [place] [id number] [facility] [address] Jan, [place] [id number] [facility] Jan, Dysuria R30.0 [place] [id number] [place] [facility] Dec, Dysuria R30.[address] [place], [place] [id number] [place] [facility] [address] [place] [address] Dec, Other specified abnormal [address]BGYN [address] [place], uterine and vaginal bleeding [place] [id number] N93.8 ; Dysmenorrhea, unspecified N94.6 ; Hyperprolactinemia E22.1 ; Superficial (introital) dyspareunia N94.11 ; Anal spasm K59.4 ; Abnormal findings on diagnostic imaging of other specified body structures R93.8 ; Sexual dysfunction, unspecified R37 and Leiomyoma of uterus, unspecified D25.9 [facility] [address] Dec, [place] [id number] [facility] [address] [place], Dec, Abnormal findings on Medical [facility] [place] [id number] diagnostic imaging of other specified body structures R93.8 ; Other specified abnormal uterine and vaginal bleeding N93.8 and Dysmenorrhea, unspecified N94.6 [facility] 103 Dec, [place] [id number] [facility] 103 Nov, [place] [id number] [facility] 103 Nov, [place]BG[place] [id number] [facility] 103 Nov, Other specified abnormal OBGYN [facility] uterine and vaginal bleeding [place], [place] [id number] N93.8 ; Dysmenorrhea, unspecified N94.6 ; Hyperprolactinemia E22.1 ; Superficial (introital) dyspareunia N94.11 ; Anal spasm K59.4 ; Abnormal findings on diagnostic imaging of other specified body structures R93.8 ; Sexual dysfunction, unspecified R37 and Leiomyoma of uterus, unspecified D25.9 [facility] 103 Nov, Dysmenorrhea, unspecified OBN [facility] N94.6 ; Leiomyoma of uterus, [place], [place] [id number] unspecified D25.9 and Other specified abnormal uterine and vaginal bleeding N93.8 [facility] 103 Nov, OBGYN [place] [id number] [facility] 103 Oct, [facility] [id number] [facility] [address] Oct[facility] Other specified abnormal [facility] [address] [place], uterine and vaginal bleeding [place] [id number] N93.8 ; Dysmenorrhea, unspecified N94.6 ; Hyperprolactinemia E22.1 ; Superficial (introital) dyspareunia N94.11 ; Anal spasm K59.4 ; Abnormal findings on diagnostic imaging of other specified body structures R93.8 ; Sexual dysfunction, unspecified R37 and Leiomyoma of uterus, unspecified D25.9 [facility] 103 Oct, OBGYN [place] [id number] [facility] 103 Sep, Dysmenorrhea, unspecified OBGYN [facility] N94.6 ; Superficial [place], [place] [id number] (introital) dyspareunia N94.11 ; Anal spasm K59.4 ; Abnormal findings on diagnostic imaging of other specified body structures R93.8 ; Sexual dysfunction, unspecified R37 ; Leiomyoma of uterus, unspecified D25.9 and Other specified abnormal uterine and vaginal bleeding N93.8 [facility] 103 Sep, Anal spasm K59.4 ; OBGYN [facility] Superficial (introital) [place], [place] [id number] dyspareunia N94.11 ; Dysmenorrhea, unspecified N94.6 and Leiomyoma of uterus, unspecified D25.[address] Sep, Encounter for gynecological OBGYN [address] [place], examination (general) [place] [id number] (routine) without abnormal findings Z01.419 ; Dysmenorrhea, unspecified N94.6 ; Superficial (introital) dyspareunia N94.11 and Anal spasm K59.4 [facility] 103 May, OBGYN [place] [id number] [address] May, Encounter for gynecological OBGYN [address] [place], examination (general) [place] [id number] (routine) without abnormal findings Z01.419 and Encounter for screening for malignant neoplasm of cervix Z12.4 IMMUNIZATIONS No Known Immunizations SOCIAL HISTORY Never Assessed REASON FOR REFERRAL FUNCTIONAL STATUS PLAN OF CARE VITAL SIGNS MEDICATIONS Unknown Medications PROCEDURES No Known procedures RESULTS No Results REASON FOR VISIT Crinone question Insurance Providers Formerly [facility] Health Member Patient Patient Patient Patient Patient Subscriber Subscriber Subscriber Group Insurance Plan Plan Plan Plan ID Relationship Address Phone Name Date of ID Name Date of No Type Insurance Insurance Insurance Coverage to Subscriber Address Phone Name Dates [employer] [phone] [employer] self Agustin [id number] [id number] [facility] [id number] MEDICAL (GENERAL) HISTORY Type Description Date Medical History Anxiety Medical History Migraines Medical History Sjogrens Medical History Anemia Surgical History diagnostic hysteroscopy/D&C 10/10/18 Hospitalization History reaction to Prednisone- severe anxiety 2009 Hospitalization History C.diff 2009
[2018-03-31 15:26] VITALS: BP 129/81
--- NOTE | 2018-03-31 15:49 | UC ---
Palpitation/Dysrhythmia HP - HPI Summary HPI Summary: 37-year-old woman comes in with chief complaint palpitations. This started yesterday during the day. They become more frequent this morning. She's had a history of PVCs and has seen cardiology for them and reports a normal echocardiogram and cardiac stress test. Palpitation occurs as a single beat. She reports upwards of 50 of them today but nonconsecutive. Denies any chest pain shorts of breath or feeling pass out. He did take her Ativan which did not help decrease the number of PVCs. Patient has recently started taking progesterone yesterday. The PVCs that he started prior to taking the progesterone. He started taking the Progesterone last month without any PVCs. - History of Current Complaint Chief Complaint: UCCardiac Stated Complaint: HEART PALIPATATIONS Time Seen by Provider: 03/31/18 15:22 Hx Last Menstrual Period: 03/12/18 Pain Intensity: 0 - Allergy/Home Medications Allergies/Adverse Reactions: Allergies Allergy/AdvReac Type Severity Reaction Status Date / Time erythromycin base Allergy Vomiting Verified 03/31/18 15:26 [From Erythrocin] lactose Allergy Diarrhea Verified 03/31/18 15:26 misoprostol [From Cytotec] Allergy CRAMPS Verified 03/31/18 15:26 prednisone Allergy Altered Verified 03/31/18 15:26 Mental Status orthotricyclen Allergy Hives Uncoded 03/31/18 15:26 ssri Allergy Nausea Uncoded 03/31/18 15:26 PMH/Surg Hx/FS Hx/Imm Hx Previously Healthy: Yes Other Cardiovascular History: PVCS Psychological History: Anxiety Other History Of: Negative For: HIV, Hepatitis B, Hepatitis C, Anticoagulant Therapy - Surgical History Surgical History: Yes Surgery Procedure, Year, and Place: CYSTOSCOPY ; SIGNMOIDSCOPY ; ENDOSCOPY. HYSTEROSCOPY - Family History Known Family History: Positive: Cardiac Disease, Other - lupus Negative: Hypertension - Social History Alcohol Use: None Substance Use Type: None Smoking Status (MU): Never Smoked Tobacco - Immunization History Most Recent Influenza Vaccination: never Most Recent Tetanus Shot: unknown Most Recent Pneumonia Vaccination: never Review of Systems All Other Systems Reviewed And Are Negative: Yes Constitutional: Positive: Negative Skin: Positive: Negative Eyes: Positive: Negative ENT: Positive: Negative Respiratory: Positive: Negative Cardiovascular: Positive: Palpitations. Negative: Chest Pain Gastrointestinal: Positive: Negative Motor: Positive: Negative Neurovascular: Positive: Negative Musculoskeletal: Positive: Negative Neurological: Positive: Negative Psychological: Positive: Anxious Is Patient Immunocompromised?: No Physical Exam Triage Information Reviewed: Yes Appearance: Well-Appearing, No Pain Distress, Well-Nourished Vital Signs: Initial Vital Signs Temp 97.7 F 03/31/18 15:19 Pulse 85 03/31/18 15:19 Resp 18 03/31/18 15:19 BP 129/81 03/31/18 15:19 Pulse Ox 100 03/31/18 15:19 Vital Signs Reviewed: Yes Eye Exam: Normal Eyes: Positive: Conjunctiva Clear Neck exam: Normal Neck: Positive: Supple Respiratory: Positive: Lungs clear, Normal breath sounds, No respiratory distress Cardiovascular: Positive: RRR Musculoskeletal Exam: Normal Musculoskeletal: Positive: Strength Intact, ROM Intact Neurological Exam: Normal Neurological: Positive: Alert, Muscle Tone Normal Psychological Exam: Normal Psychological: Positive: Age Appropriate Behavior Skin Exam: Normal Diagnostics - EKG Cardiac Rate: NL - AT 15:20; NSR 87 BPM,NL ST, NO ECTOPY AT 15:21 NSR, 90 BPM, POS PVC,NL ST Palpitations Course/Dx - Course Course Of Treatment: I discussed the EKGs with the patient I discussed the EKG with the patient. Patient has had PVCs in the past and she reports about 2 years ago she was seen by cardiology Dr. Gant and she had a Holter monitor and echocardiogram, cardiac stress test which were all normal besides having PVCs. Patient reports having normal lab work a couple of months ago and declines getting lab work today. She's not having any symptoms of shortness of breath or chest pain or feeling like she's got a pass out with her PVCs. She is anxious and she reports not drinking a lot of fluids and she is drinking caffeine. I recommended drinking plenty of water and decreasing caffeine intake. He also discussed [id number] magnesium supplements. Plan is to follow-up with cardiology. Also let the patient know if she gets any symptoms such as chest pain or shortness of breath or feeling like she's got a pass out she should go the emergency department. - Differential Dx/Diagnosis Provider Diagnosis: PVCs (premature ventricular contractions), Heart palpitations Discharge - Sign-Out/Discharge Documenting (check all that apply): Patient Departure All imaging exams completed and their final reports reviewed: No Studies - Discharge Plan Condition: Stable Disposition: HOME Patient Education Materials: Heart Palpitations (ED), Premature Ventricular Contractions (ED) Referrals: Jonathan Johnson MD [Primary Care Provider] - Migdalia Gant MD [Medical Doctor] - Additional Instructions: FOLLOW UP WITH YOUR RECREATION DIRECTOR. DRINK PLENTY OF FLUIDS, AVOID EXCESS CAFFEINE, CONSIDER TAKING OVER THE COUNTER MAGNESIUM. GET RECHECKED FOR ANY WORSENING OF YOUR CONDITION; CHEST PAIN, SHORTNESS OF BREATH, YOU FEEL LIKE PASSING OUT OR QUESTIONS OR CONCERNS. - Billing Disposition and Condition Condition: STABLE Disposition: Home
== END 2018-03-31 16:00 | disposition home or self-care (01) ==
LOC: UCEAST 15:13
DX: R00.2 Palpitations (principal); I49.3 Ventricular premature depolarization; Z88.1 Allergy status to other antibiotic agents; Z88.8 Allergy status to other drugs, medicaments and biological substances
CPT/HCPCS: 93005; 99211; G0463

== ENCOUNTER 2018-06-27 21:37 | Emergency (ER) | payer OTHER ==
[2018-06-27 21:43] VITALS: BP 132/72
[2018-06-27] MEDS ORDERED: Amoxicillin PO (*) 500 MG CAP PO ONE (21:55)
--- NOTE | 2018-06-27 22:03 | UC ---
[facility] HPI - HPI Summary HPI Summary: 37-year-old otherwise healthy female presents with 2-3 days of mild discomfort in her left jaw and lower first molar. She is concerned for dental abscess. She denies any fever or facial swelling. She has felt a tingling sensation in her chin, left lower teeth and the left side of her tongue. She has had no injury but she does play a violent which she rests against her left neck and has developed a callus from. - History of Current Complaint Chief Complaint: UCDentalProblem Stated Complaint: DENTAL Time Seen by Provider: 06/27/18 21:45 Hx Obtained From: Patient Hx Last Menstrual Period: 18 DAYS AGO Pain Intensity: 2 - Allergies/Home Medications Allergies/Adverse Reactions: Allergies Allergy/AdvReac Type Severity Reaction Status Date / Time erythromycin base Allergy Vomiting Verified 06/27/18 21:43 [From Erythrocin] lactose Allergy Diarrhea Verified 06/27/18 21:43 misoprostol [From Cytotec] Allergy CRAMPS Verified 06/27/18 21:43 prednisone Allergy Altered Verified 06/27/18 21:43 Mental Status orthotricyclen Allergy Hives Uncoded 06/27/18 21:43 ssri Allergy Nausea Uncoded 06/27/18 21:43 PMH/Surg Hx/FS Hx/Imm Hx Previously Healthy: Yes GI/ History: Other - C. difficile colitis Psychological History: Anxiety Other History Of: Negative For: HIV, Hepatitis B, Hepatitis C, Anticoagulant Therapy - Surgical History Surgical History: Yes Surgery Procedure, Year, and Place: CYSTOSCOPY; SIGMOIDSCOPY ; ENDOSCOPY. 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 Alcohol Use: None Substance Use Type: None Smoking Status (MU): Never Smoked Tobacco - Immunization History Most Recent Influenza Vaccination: never Most Recent Tetanus Shot: unknown Most Recent Pneumonia Vaccination: never Review of Systems All Other Systems Reviewed And Are Negative: Yes Constitutional: Negative: Fever Skin: Negative: Rash, Bruising ENT: Positive: Dental Pain Respiratory: Positive: Negative Cardiovascular: Positive: Negative Musculoskeletal: Positive: Negative Neurological: Positive: Numbness Is Patient Immunocompromised?: No Physical Exam Triage Information Reviewed: Yes Appearance: Well-Appearing, No Pain Distress Vital Signs: Initial Vital Signs Temp 98.2 F 06/27/18 21:39 Pulse 96 06/27/18 21:39 Resp 16 06/27/18 21:39 BP 132/72 06/27/18 21:39 Pulse Ox 100 06/27/18 21:39 Eye Exam: Normal ENT: Positive: Normal ENT inspection Dental: Positive: Other: - There is minor discomfort with percussion at the left lower first molar without any gingival redness, edema or fluctuance Neck: Positive: Supple, Nontender, Other: - Callous formed in the left neck Respiratory: Positive: Lungs clear, Normal breath sounds Cardiovascular: Positive: RRR Musculoskeletal: Positive: Strength Intact, ROM Intact Neurological: Positive: Alert Psychological Exam: Normal Dental Complaint Course/Dx - Course Course Of Treatment: Nurse's notes reviewed. There is no definite dental abscess but this is certainly a possibility given her percussion tenderness in the molar. We have started her on amoxicillin here and will continue on short course. She'll take probiotic 3 times daily with this. 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 Today may be a pre-herpetic syndrome. We will not start antiviral today. She will follow-up closely with dental for Panorex x-ray. - Differential Dx/Diagnosis Provider Diagnosis: Pain, dental Discharge - Sign-Out/Discharge Documenting (check all that apply): Patient Departure All imaging exams completed and their final reports reviewed: No Studies - Discharge Plan Condition: Improved Disposition: HOME Prescriptions: Amoxicillin PO (*) [Amoxicillin 500 MG CAP*] 500 mg PO TID #30 cap Patient Education Materials: Toothache (ED) Referrals: Jonathan Johnson MD [Primary Care Provider] - Additional Instructions: Call your dentist first thing in the morning to schedule follow-up. Ibuprofen or Aleve can be taken for discomfort. Return with fever, facial swelling, worse , new symptoms or other concerns. Refrain from placing her instrument against your neck for the next several days. - Billing Disposition and Condition Condition: IMPROVED Disposition: Home - Attestation Statements Document Initiated by Daniel: Rekha
== END 2018-06-27 22:10 | disposition home or self-care (01) ==
LOC: UCEAST 21:37
DX: K08.89 Other specified disorders of teeth and supporting structures (principal); F41.9 Anxiety disorder, unspecified; Z88.3 Allergy status to other anti-infective agents; Z88.8 Allergy status to other drugs, medicaments and biological substances
CPT/HCPCS: 99212; A9270-GY; G0463

== ENCOUNTER 2018-06-28 21:04 | Emergency (ER) | payer OTHER ==
[2018-06-28] MEDS ORDERED: NS 0.9% 1000 ML** 2,000 ML IV ONE (23:09)
[2018-06-28] MEDS ORDERED: Metoclopramide IV* 5 MG/ML 2 ML VIAL IV SLOW PU ONE (23:10)
[2018-06-28] MEDS ORDERED: Acetaminophen TAB* 325 MG PO ONE (23:12)
[2018-06-28] MEDS ORDERED: Morphine 4 MG/ML VIAL (1 ml) 4 MG/ML VIAL IV ONE (23:13)
--- NOTE | 2018-06-28 23:13 | ED ---
GI/ HPI - HPI Summary HPI Summary: This patient is a 37 year old F presenting to ED with a chief complaint of nausea, dry heaving, and diarrhea since this morning. The patient rates the pain 3/10 in severity. Symptoms aggravated by nothing. Symptoms alleviated by nothing. Patient reports abdominal pain, nausea, near-syncope when walking, weakness, fever (99.8F), a dripping noise in her stomach that goes along with my heart, myalgia, and tachycardia. Patient denies anxiety. Yesterday, she was in UC for a dental infection and took amoxicillin at 2200 last night. She saw a dentist and said that she had no abscess. Patient denies anxiety. PMHx of hysteroscopy (2018) and c. diff (2008). - History of Current Complaint Chief Complaint: EDNauseaVomitDiarrh Time Seen by Provider: 06/28/18 22:59 Stated Complaint: FEEL VERY VERY SICK, MIGHT HAVE CDIFF PER PT Hx Obtained From: Patient Hx Last Menstrual Period: 18 DAYS AGO Onset/Duration: Started Hours Ago - since this morning, Still Present Timing: Constant, Lasting Hours Severity: Mild Current Severity: Mild - 3/10 Pain Intensity: 3 Associated Signs and Symptoms: Positive: Weakness, Nausea, Diarrhea, Fever, Abdominal Pain, Other: - Patient reports near-syncope when walking, a dripping noise in her stomach that goes along with my heart, myalgia, and tachycardia. - Allergy/Home Medications Allergies/Adverse Reactions: Allergies Allergy/AdvReac Type Severity Reaction Status Date / Time erythromycin base Allergy Vomiting Verified 06/28/18 21:11 [From Erythrocin] lactose Allergy Diarrhea Verified 06/28/18 21:11 misoprostol [From Cytotec] Allergy CRAMPS Verified 06/28/18 21:11 prednisone Allergy Altered Verified 06/28/18 21:11 Mental Status orthotricyclen Allergy Hives Uncoded 06/28/18 21:11 ssri Allergy Nausea Uncoded 06/28/18 21:11 PMH/Surg Hx/FS Hx/Imm Hx Endocrine/Hematology History: Denies: Hx Anticoagulant Therapy, Hx Diabetes, Hx Thyroid Disease Cardiovascular History: Denies: Hx Angina, Hx Congestive Heart Failure, Hx Coronary Artery Disease, Hx Deep Vein Thrombosis, Hx Hypercholesterolemia, Hx Hypertension, Hx Myocardial Infarction, Hx Pacemaker/ICD, Hx Valvular Heart Disease Respiratory History: Denies: Hx Asthma, Hx Chronic Obstructive Pulmonary Disease (COPD), Hx Lung Cancer, Hx Pneumonia, Hx Pulmonary Embolism GI History: Reports: Other GI Disorders - HX OF C-DIFF Denies: Hx Gall Bladder Disease, Hx Gastrointestinal Bleed, Hx Ulcer, Hx Urosepsis History: Denies: Hx Dialysis, Hx Kidney Stones, Hx Renal Disease, Other Problems/ Disorders Musculoskeletal History: Denies: Hx Scoliosis Sensory History: Denies: Hx Hearing Aid Neurological History: Reports: Hx Headaches, Other Neuro Impairments/Disorders - HX OF FIBROMYALGIA Denies: Hx Dementia, Hx Migraine, Hx Seizures, Hx Transient Ischemic Attacks (TIA) Psychiatric History: Reports: Hx Anxiety, Hx Depression, Hx Panic Disorder Denies: Hx Schizophrenia, Hx Bipolar Disorder - Surgical History Surgery Procedure, Year, and Place: CYSTOSCOPY; SIGMOIDSCOPY ; ENDOSCOPY. HYSTEROSCOPY - Immunization History Date of Tetanus Vaccine: Unknown Date of Influenza Vaccine: 01/12 Infectious Disease History: Yes Infectious Disease History: Reports: Hx Clostridium Difficile - Apr,May,Jun 2008 Denies: Hx Hepatitis, Hx Human Immunodeficiency Virus (HIV), Hx of Known/ Suspected MRSA, Hx Shingles, Hx Tuberculosis, Hx Known/Suspected VRE, Hx Known/ Suspected VRSA, History Other Infectious Disease, Traveled Outside the [place] in Last 30 Days - Family History Known Family History: Positive: Cardiac Disease, Other - lupus Negative: Hypertension - Social History Alcohol Use: None Substance Use Type: Reports: None Smoking Status (MU): Never Smoked Tobacco Review of Systems Positive: Fever - 99.8F Positive: Other - tachycardia Positive: Abdominal Pain, Diarrhea, Nausea, Other - dripping noise in her stomach that goes along with my heart, dry heaving Positive: Myalgia Neurological: Other - near-syncope while walking Positive: Weakness Negative: Anxious All Other Systems Reviewed And Are Negative: Yes Physical Exam - Summary Physical Exam Summary: VITAL SIGNS: Reviewed. GENERAL: Patient is a well-developed and nourished FEMALE who is lying comfortable in the stretcher. Patient is not in any acute respiratory distress. HEAD AND FACE: No signs of trauma. No ecchymosis, hematomas or skull depressions. No sinus tenderness. EYES: PERRLA, EOMI x 2, No injected conjunctiva, no nystagmus. EARS: Hearing grossly intact. Ear canals and tympanic membranes are within normal limits. MOUTH: Oropharynx within normal limits. NECK: Supple, trachea is midline, no adenopathy, no JVD, no carotid bruit, no c- spine tenderness, neck with full ROM. CHEST: Symmetric, no tenderness at palpation LUNGS: Clear to auscultation bilaterally. No wheezing or crackles. CVS: Tachycardia, Regular rhythm, S1 and S2 present, no murmurs or gallops appreciated. ABDOMEN: Soft, diffuse abdominal tenderness. No signs of distention. No rebound no guarding, and no masses palpated. Bowel sounds are normal. EXTREMITIES: FROM in all major joints, no edema, no cyanosis or clubbing. NEURO: Alert and oriented x 3. No acute neurological deficits. Speech is normal and follows commands. SKIN: Dry and warm Triage Information Reviewed: Yes Vital Signs On Initial Exam: Initial Vitals Temp Pulse Resp BP Pulse Ox 97.8 F 120 16 106/85 100 06/28/18 21:05 06/28/18 21:05 06/28/18 21:05 06/28/18 21:05 06/28/18 21:05 Vital Signs Reviewed: Yes Diagnostics - Vital Signs Vital Signs Temp Pulse Resp BP Pulse Ox 06/28/18 21:05 97.8 F 120 16 106/85 100 - Laboratory Result Diagrams: 06/29/18 00:00 06/29/18 00:00 Lab Statement: Any lab studies that have been ordered have been reviewed, and results considered in the medical decision making process. Re-Evaluation - Re-Evaluation First Eval Re-Evaluation Time: 01:30 Change: Improved Comment: Patient is doing fine. She is walking well in the ED. Discussed plan for discharge. Patient understands and agrees with this plan. GIGU Course/Dx - Course Assessment/Plan: This patient is a 37 year old F presenting to ED with a chief complaint of nausea, dry heaving, and diarrhea since this morning. In the ED course, the patient was given Tylenol, Reglan, and fluids. This patient will be discharged with dx acute gastroenteritis. Patient understands and agrees with this plan. - Diagnoses Differential Diagnoses - Female: Other - acute gastroenteritis Provider Diagnoses: Acute gastroenteritis Discharge - Sign-Out/Discharge Documenting (check all that apply): Patient Departure - discharge Patient Received Moderate/Deep Sedation with Procedure: No - Discharge Plan Condition: Stable Disposition: HOME Prescriptions: Metoclopramide TAB* [Reglan TAB*] 10 mg PO Q6H PRN #20 tab PRN Reason: Nausea/Vomiting Patient Education Materials: Gastroenteritis (ED) Referrals: Jonathan Johnson MD [Primary Care Provider] - 3 Days Additional Instructions: PLEASE RETURN TO THE ED TO IMMEDIATELY FOR WORSENING OR CONCERNING SYMPTOMS. - Billing Disposition and Condition Condition: STABLE Disposition: Home - Attestation Statements Document Initiated by Scribe: Yes Documenting Scribe: Herb Helton Provider For Whom Veritoibe is Documenting (Include Credential): Walter Sawyer MD Scribe Attestation: Herb Oliva, scribed for Walter Sawyer MD on 06/29/18 at 0616. Scribe Documentation Reviewed: Yes Provider Attestation: The documentation as recorded by the Herb levy accurately reflects the service I personally performed and the decisions made by Dimas adams MD Status of Scribe Document: Viewed
[2018-06-29 00:25] LABS: ABS Basophils 0 10^3/ul (0-0.2); ABS Eosinophils 0 10^3/ul (0-0.6); ABS Lymphocytes 0.2 10^3/ul (1.0-4.8); ABS Monocytes 0.4 10^3/ul (0-0.8); ABS Neutrophils 6.8 10^3/ul (1.5-7.7); ABS Nucleated RBC 0 10^3/ul; Eosinophil % 0 %; Hematocrit 44 % (33-41); Hemoglobin 15.2 g/dL (12.0-16.0); Mean Corpuscular HGB Conc 35 g/dL (31-36); Mean Corpuscular Hemoglobin 30 pg (27-31); Mean Corpuscular Volume 87 fL (80-97); Mean Platelet Volume 8.1 fL (7.4-10.4); Nucleated Red Blood Cells % 0.1; Platelet Count 187 10^3/uL (150-450); Red Blood Count 5.09 10^6 /uL (3.70-4.87); Red Cell Distribution Width 13 % (10.5-15); White Blood Count 7.4 10^3/uL (3.5-10.8)
[2018-06-29 00:33] LABS: ALT 25 U/L (7-52); AST 28 U/L (13-39); Albumin 4.4 g/dL (3.2-5.2); Albumin/Globulin Ratio 1.4 (1-3); Alkaline Phosphatase 50 U/L (34-104); Amylase 32 U/L (29-103); Anion Gap 8 mmol/L (2-11); BUN/Creatinine Ratio 21.5 (8-20); Blood Urea Nitrogen 17 mg/dL (6-24); C Reactive Protein 15.97 mg/L (<8.01); CO2 Carbon Dioxide 24 mmol/L (22-32); Calcium 9.6 mg/dL (8.6-10.3); Chloride 103 mmol/L (101-111); EGFR African American 98.6 (>60); EGFR Non-African American 81.4 (>60); Globulin 3.2 g/dL (2-4); Glucose 106 mg/dL (70-100); Magnesium 1.8 mg/dL (1.9-2.7); Potassium 3.9 mmol/L (3.5-5.0); Sodium 135 mmol/L (135-145); Total Protein 7.6 g/dL (6.4-8.9)
[2018-06-29 00:42] LABS: Influenza A Molecular NEGATIVE (Negative); Influenza B Molecular NEGATIVE (Negative)
[2018-06-29 00:49] LABS: HCG Pregnancy < 0.60 mIU/mL
[2018-06-29] MEDS ORDERED: Metoclopramide TAB* 10 MG PO ONE (01:37)
[2018-06-29] MEDS ORDERED: Metoclopramide TAB* 10 MG ONE (01:38)
[2018-06-29 01:51] VITALS: BP 120/76
== END 2018-06-29 01:51 | disposition home or self-care (01) ==
LOC: ED 21:04
DX: K52.9 Noninfective gastroenteritis and colitis, unspecified (principal); Z88.1 Allergy status to other antibiotic agents; Z88.8 Allergy status to other drugs, medicaments and biological substances
CPT/HCPCS: 36415; 80053; 82150; 83605; 83690; 83735; 84702; 85025; 86140; 87040; 96374; 96375; 99283; A9270-GY; J2765

== ENCOUNTER 2019-07-21 18:12 | Emergency (ER) | payer OTHER ==
--- OUTSIDE RECORDS SUMMARY | 2019-07-21 18:18 | XMS REPORT ---
:1980 Author Organization [facility] Address [address] [place] [address] Care Team Providers Name Role Phone Susana Arellano Unavailable Unavailable PROBLEMS Type Condition ICD9-CM [id number] Onset Condition SNOMED Code Code Code Dates Status Problem Anal spasm K59.4 Active 60290351 Problem Migraine with aura, G43.109 Active 4434660 not intractable, without status migrainosus Problem Abnormal findings on R93.8 Active 195300754 diagnostic imaging of other specified body structures Problem Sexual dysfunction, R37 Active 09897266 unspecified Problem Other specified N93.8 Active 683573531 abnormal uterine and vaginal bleeding Problem Frequency of R35.0 Active 405355765 micturition Problem Dysmenorrhea, N94.6 Active 965314915 unspecified Problem Unspecified lump in N63.42 Active 106989009 left breast, subareolar Problem Superficial N94.11 Active 85272922 (introital) dyspareunia Problem Leiomyoma of uterus, D25.9 Active 11146449 unspecified Problem Hyperprolactinemia E22.1 Active 068740874 Problem 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 81819853 pituitary gland Problem Other ovarian cyst, N83.292 Active [id number] left side ALLERGIES Substance Reaction Event Type Date Status prednisone anxious Drug Allergy Jun, Active misoprostol Intense cramping Drug Allergy Jun, Active Cipro Unknown Drug Allergy Jun, Active trazodone shakey Drug Allergy Jun, Active ENCOUNTERS Encounter Location Date Diagnosis [facility] [address] Sep, [place] [id number] [facility] [address] Sep, [place] [id number] [place] [facility] [address] [place] [address] Jun, Unspecified lump in left [address] [place], breast, subareolar N63.42 [place] [id number] [facility] [address] Jun, [place] [id number] [facility] [address] Feb, [facility] D25.9 [place], [place] [id number] [facility] Feb, Other specified [facility] and vaginal bleeding [place], [place] [id number] N93.8 and Leiomyoma of uterus, unspecified D25.9 [facility] [address] Nov, [facility] [place] [id number] N93.8 ; Leiomyoma of uterus, unspecified D25.9 and Other ovarian cyst, left side N83.292 [facility] [address] Nov, Other specified [facility] and [facility] [place], [place] [id number] N93.8 [place] [facility] [address] [facility] Nov, Other specified abnormal [address] [place], uterine and vaginal bleeding [place] [id number] N93.8 [facility] [address] Nov, [place] [id number] [facility] Nov, Other specified [facility] and vaginal [facility] [place], [place] [id number] N93.8 ; Frequency of micturition R35.0 and Other ovarian cyst, left side N83.292 [facility] [address] Oct, [facility] uterus, [facility] unspecified D25.9 and Other [place], [place] [id number] ovarian cyst, left side N83.292 [facility] [address] Oct, Leiomyoma of uterus, O[facility] unspecified D25.9 [place], [place] [id number] [facility] [address] Oct, Other specified [facility] and vaginal bleeding [place] [id number] N93.8 [facility] [address] Oct, [place] [id number] [facility] [address] Oct, [place] [id number] [facility] Oct, [place] [id number] [facility] [address] Sep, [place] [id number] [facility] Sep, Encounter for gynecological [address] [place], examination (general) [place] [id number] (routine) with abnormal findings Z01.411 ; Encounter for screening for malignant neoplasm of cervix Z12.4 ; Other specified abnormal uterine and vaginal bleeding N93.8 ; Dysmenorrhea, unspecified N94.6 ; Hyperprolactinemia E22.1 ; Superficial (introital) dyspareunia N94.11 ; Anal spasm K59.4 ; Abnormal findings on diagnostic imaging of other specified body structures R93.8 ; Leiomyoma of uterus, unspecified D25.9 and 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 [facility] [address] Apr, [place] [id number] [address] Apr, Other specified abnormal [address] [place], uterine and vaginal bleeding [place] [id number] N93.8 ; Dysmenorrhea, unspecified N94.6 ; Hyperprolactinemia E22.1 ; Superficial (introital) dyspareunia N94.11 ; Anal spasm K59.4 ; Abnormal findings on diagnostic imaging of other specified body structures R93.8 ; Leiomyoma of uterus, unspecified D25.9 and 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 [facility] Feb, [place] [id number] [facility] [address] Jan, [place] [id number] [facility] Jan, Other specified abnormal [address] [place], uterine and vaginal bleeding [place] [id number] N93.8 ; Dysmenorrhea, unspecified N94.6 ; Hyperprolactinemia E22.1 ; Superficial (introital) dyspareunia N94.11 ; Anal spasm K59.4 ; Abnormal findings on diagnostic imaging of other specified body structures R93.8 ; Sexual dysfunction, unspecified R37 ; Leiomyoma of uterus, unspecified D25.9 and 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 [facility] [address] Jan, [place] [id number] [facility] [address] Jan, [place] [id number] [facility] [address] Jan, [place] [id number] [facility] [address] Jan, Dysuria R30.0 [place] [id number] [place] [facility] [address] [place] [address] Dec, D[address] R[address] [place], [place] [id number] [place] [facility] [address] [place] [address] Dec, Other specified abnormal [address] [place], uterine and vaginal bleeding [place] [id number] N93.8 ; Dysmenorrhea, unspecified N94.6 ; Hyperprolactinemia E22.1 ; Superficial (introital) dyspareunia N94.11 ; Anal spasm K59.4 ; Abnormal findings on diagnostic imaging of other specified body structures R93.8 ; Sexual dysfunction, unspecified R37 and Leiomyoma of uterus, unspecified D25.9 [facility] Dec, [place] [id number] [place] [address] Dec, Abnormal findings on [facility] [place], [place] [id number] diagnostic imaging of other specified body structures R93.8 ; Other specified abnormal uterine and vaginal bleeding N93.8 and Dysmenorrhea, unspecified N94.6 [facility] Dec, [place] [id number] [facility] Nov, [place] [id number] [facility] Nov, [place] [id number] [facility] Nov, Other specified abnormal [facility] uterine and vaginal bleeding [place], [place] [id number] N93.8 ; Dysmenorrhea, unspecified N94.6 ; Hyperprolactinemia E22.1 ; Superficial (introital) dyspareunia N94.11 ; Anal spasm K59.4 ; Abnormal findings on diagnostic imaging of other specified body structures R93.8 ; Sexual dysfunction, unspecified R37 and Leiomyoma of uterus, unspecified D25.9 [facility] Nov, Dysmenorrhea, unspecified OBGYN [facility] N94.6 ; Leiomyoma of uterus, [place], [place] [id number] unspecified D25.9 and Other specified abnormal uterine and vaginal bleeding N93.8 [facility] Nov, [place] [id number] [facility] [address] Oct, [place] [id number] [place] [facility] [address] [place] [address] Oct, Other specified abnormal [address] [place], uterine and vaginal bleeding [place] [id number] N93.8 ; Dysmenorrhea, unspecified N94.6 ; Hyperprolactinemia E22.1 ; Superficial (introital) dyspareunia N94.11 ; Anal spasm K59.4 ; Abnormal findings on diagnostic imaging of other specified body structures R93.8 ; Sexual dysfunction, unspecified R37 and Leiomyoma of uterus, unspecified D25.9 [facility] [address] Oct, [place] [id number] [facility] 103 Sep, Dysmenorrhea, unspecified OBGYN [facility] N94.6 ; Superficial [place], [place] [id number] (introital) dyspareunia N94.11 ; Anal spasm K59.4 ; Abnormal findings on diagnostic imaging of other specified body structures R93.8 ; Sexual dysfunction, unspecified R37 ; Leiomyoma of uterus, unspecified D25.9 and Other specified abnormal uterine and vaginal bleeding N93.8 [facility] 103 Sep, Anal spasm K59.4 ; OBGYN [facility] Superficial (introital) [place], [place] [id number] dyspareunia N94.11 ; Dysmenorrhea, unspecified N94.6 and Leiomyoma of uterus, unspecified D25.[address] Sep, Encounter for gynecological [address] [place], examination (general) [place] [id number] (routine) without abnormal findings Z01.419 ; Dysmenorrhea, unspecified N94.6 ; Superficial (introital) dyspareunia N94.11 and Anal spasm K59.4 [facility] [address] May, [place] [id number] [address] May, Encounter for gynecological [address]BG[address] [place], examination (general) [place] [id number] (routine) without abnormal findings Z01.419 and Encounter for screening for malignant neoplasm of cervix Z12.4 IMMUNIZATIONS No Known Immunizations SOCIAL HISTORY Never Assessed REASON FOR REFERRAL FUNCTIONAL STATUS PLAN OF CARE Activity Details Follow Up recheck lt breast at scheduled annual 7-20 Reason: VITAL SIGNS Temperature 98.3 degrees Fahrenheit 2019-06-30 Height 63 in 2019-06-30 Weight 122 lbs 2019-06-30 BMI 21.61 kg/m2 2019-06-30 Blood pressure systolic 98 mm Hg 2019-06-30 Blood pressure diastolic 62 mm Hg 2019-06-30 MEDICATIONS Medication Instructions Dosage Frequency Start End Duration Status Date Date multivitamin orally once a day 1 cap(s) 24h Active Multiple Vitamins Simplex f PO QD 5 tablets 24h Active Advil 200 mg orally every 6 1 tab(s) 6h Active hours Ativan 0.5 mg orally qd 1/2 tab(s) 24h Active melatonin 3 mg orally once (at 2 tab(s) Active bedtime) cyclobenzaprine 5 orally 3 times a 1 tab(s) 8h Active mg day Floradix 500mL po QD 24h Active Plaquenil 200 mg orally QOD 1 tab(s) Active Tylenol 500 mg. Active Crinone 4% intravaginally 45 mg 84 days Active every other day starting day 14 5-HTP 50 mg orally once a day 1 cap(s) 24h 30 day(s) Active PROCEDURES No Known procedures RESULTS No Results REASON FOR VISIT breast rash/bump, Denies contact with persons with Covid-19, cough, fever, sob, or travel in last 6 weeks Insurance Providers [facility] Member Patient Patient Patient Patient Patient Subscriber Subscriber Subscriber Group Insurance Plan Plan Plan Plan ID Relationship Address Phone Name Date of ID Name Date of No Type Insurance Insurance Insurance Coverage to Subscriber Address Phone Name Dates [employer] [phone] [employer] [facility] [id number] -[phone] [facility] [phone] MEDICAL (GENERAL) HISTORY Type Description Date Medical History Anxiety Medical History Migraines Medical History Sjogrens Medical History Anemia Medical History Pituitary microadenoma / prolactinoma Surgical History diagnostic hysteroscopy/D&C 01/05/18 Hospitalization History reaction to Prednisone- severe anxiety 2009 Hospitalization History C.diff 2008
--- OUTSIDE RECORDS SUMMARY | 2019-07-21 18:18 | XMS REPORT ---
:1980 Author Organization [facility] Address [address] [place] [address] Care Team Providers Name Role Phone Susana Arellano Unavailable Unavailable PROBLEMS Type Condition ICD9-CM [id number] Onset Condition SNOMED Code Code Code Dates Status Problem Anal spasm K59.4 Active 21125526 Problem Migraine with aura, G43.109 Active 7815479 not intractable, without status migrainosus Problem Abnormal findings on R93.8 Active 797586693 diagnostic imaging of other specified body structures Problem Sexual dysfunction, R37 Active 22034413 unspecified Problem Other specified N93.8 Active 089088056 abnormal uterine and vaginal bleeding Problem Frequency of R35.0 Active 961908283 micturition Problem Dysmenorrhea, N94.6 Active 396323065 unspecified Problem Unspecified lump in N63.42 Active 840168885 left breast, subareolar Problem Superficial N94.11 Active 52075491 (introital) dyspareunia Problem Leiomyoma of uterus, D25.9 Active 97107749 unspecified Problem Hyperprolactinemia E22.1 Active 676513612 Problem 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 88385816 pituitary gland Problem Other ovarian cyst, N83.292 Active [id number] left side ALLERGIES No Information ENCOUNTERS Encounter Location Date Diagnosis [facility] 103 Sep, OBGYN [place], [place] [id number] [facility] 103 Sep, OBGYN [place] [id number] [address] Jun, Unspecified lump in left OBGYN [address] [place], breast, subareolar N63.42 [place] [id number] [facility] Jun, OBGYN [place], [place] [id number] [facility] 103 Feb, Leiomyoma of uterus, OBGYN [facility] unspecified D25.9 [place] [id number] [facility] 103 Feb, Other specified abnormal OBGYN [facility] uterine and vaginal bleeding [place] [id number] N93.8 and Leiomyoma of uterus, unspecified D25.9 [facility] 103 Nov, [facility] [place] [id number] N93.8 ; Leiomyoma of uterus, unspecified D25.9 and Other ovarian cyst, left side N83.292 [facility] 103 Nov, [facility] [place] [id number] N93.8 [place] [facility] [address] Nov, Other specified abnormal [address]BG[address] [place], uterine and vaginal bleeding [place] [id number] N93.8 [facility] 103 Nov, OBGYN [place] [id number] [facility] 103 Nov, Other specified abnormal OBGYN [facility] uterine and vaginal bleeding [place] [id number] N93.8 ; Frequency of micturition R35.0 and Other ovarian cyst, left side N83.292 [facility] 103 Oct, Leiomyoma of uterus, OBGYN [facility] unspecified D25.9 and Other [place] [id number] ovarian cyst, left side N83.292 [facility] 103 Oct, Leiomyoma of uterus, OBGYN [facility] unspecified D25.9 [place] [id number] [facility] Oct, Other specified abnormal OBGYN [facility] uterine and vaginal bleeding [place] [id number] N93.[address] [facility] Oct, OBGYN [place] [id number] [facility] Oct, [place] [id number] [facility] 103 Oct, OBGYN [place] [id number] [facility] 103 Sep, OBGYN [place] [id number] [address] Sep, Encounter for gynecological OBGYN [address] [place], [facility] (general[facility] [place] [id number] (routine) with abnormal findings Z01.411 ; Encounter [...] and 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 [facility] Apr, OBGYN [place] [id number] [address] Apr, Other specified abnormal [address]BGYN [address] [place], uterine and vaginal bleeding [place] [id number] N93.8 ; Dysmenorrhea, unspecified N94.6 ; Hyperprolactinemia E22.1 ; Superficial (introital) dyspareunia N94.11 ; Anal spasm K59.4 ; Abnormal findings on diagnostic imaging of other specified body structures R93.8 ; Leiomyoma of uterus, unspecified D25.9 and 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 [facility] Feb, OBGYN [place] [id number] [facility] Jan, OBGYN [place] [id number] [place] [facility] [address] [place] [address] Jan, Other specified abnormal OBG[address] [place], uterine and vaginal bleeding [place] [id number] N93.8 ; Dysmenorrhea, unspecified N94.6 ; Hyperprolactinemia E22.1 ; Superficial (introital) dyspareunia N94.11 ; Anal spasm K59.4 ; Abnormal findings on diagnostic imaging of other specified body structures R93.8 ; Sexual dysfunction, unspecified R37 ; Leiomyoma of uterus, unspecified D25.9 and 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 [facility] 103 Jan, OBGYN [place] [id number] [facility] 103 Jan, OBGYN [place] [id number] [facility] Jan, OBGYN [place] [id number] [facility] Jan, Dysuria R30.0 [place] [id number] [place] [facility] [address] [place] [address] Dec, [facility]30.[address] [facility] [address] [place] [id number] [facility] Dec, Other specified abnormal [address] [place], uterine and vaginal bleeding [place] [id number] N93.8 ; Dysmenorrhea, unspecified N94.6 ; Hyperprolactinemia E22.1 ; Superficial (introital) dyspareunia N94.11 ; Anal spasm K59.4 ; Abnormal findings on diagnostic imaging of other specified body structures R93.8 ; Sexual dysfunction, unspecified R37 and Leiomyoma of uterus, unspecified D25.9 [facility] Dec, [place] [id number] [place] [address] Dec, Abnormal findings on Medical Center [place] [id number] diagnostic imaging of other specified body structures R93.8 ; Other specified abnormal uterine and vaginal bleeding N93.8 and Dysmenorrhea, unspecified N94.6 [facility] 103 Dec, OBGYN [place] [id number] [facility] 103 Nov, OBGYN [place] [id number] [facility] 103 Nov, OBGYN [place] [id number] [facility] 103 Nov, Other specified abnormal OBGYN [facility] uterine and vaginal bleeding [place] [id number] N93.8 ; Dysmenorrhea, unspecified N94.6 ; Hyperprolactinemia E22.1 ; Superficial (introital) dyspareunia N94.11 ; Anal spasm K59.4 ; Abnormal findings on diagnostic imaging of other specified body structures R93.8 ; Sexual dysfunction, unspecified R37 and Leiomyoma of uterus, unspecified D25.9 [facility] 103 Nov, Dysmenorrhea, unspecified OBGYN [facility] N94.6 ; Leiomyoma of uterus, [place] [id number] unspecified D25.9 and Other specified abnormal uterine and vaginal bleeding N93.[address] [facility] Nov, [place] [id number] [facility] 103 Oct, OBGYN [place] [id number] [address] Oct, Other specified abnormal OBGYN [address] [place], uterine and vaginal bleeding [place] [id number] N93.8 ; Dysmenorrhea, unspecified N94.6 ; Hyperprolactinemia E22.1 ; Superficial (introital) dyspareunia N94.11 ; Anal spasm K59.4 ; Abnormal findings on diagnostic imaging of other specified body structures R93.8 ; Sexual dysfunction, unspecified R37 and Leiomyoma of uterus, unspecified D25.9 [facility] 103 Oct, [place] [id number] [facility] 103 Sep, Dysmenorrhea, unspecified OBGYN [facility] N94.6 ; Superficial [place] [id number] (introital) dyspareunia N94.11 ; Anal spasm K59.4 ; Abnormal findings on diagnostic imaging of other specified body structures R93.8 ; Sexual dysfunction, unspecified R37 ; Leiomyoma of uterus, unspecified D25.9 and Other specified abnormal uterine and vaginal bleeding N93.8 [facility] 103 Sep, Anal spasm K59.4 ; OBGYN [facility] Superficial (introital) [place] [id number] dyspareunia N94.11 ; Dysmenorrhea, unspecified N94.6 and Leiomyoma of uterus, unspecified D25.[address] Sep, Encounter for gynecological OBGYN [address] [place], examination (general) [place] [id number] (routine) without abnormal findings Z01.419 ; Dysmenorrhea, unspecified N94.6 ; Superficial (introital) dyspareunia N94.11 and Anal spasm K59.4 [facility] 103 May, [place] [id number] [address] May, Encounter for gynecological OBGYN [address] [place], examination (general) [place] [id number] (routine) without abnormal findings Z01.419 and Encounter for screening for malignant neoplasm of cervix Z12.4 IMMUNIZATIONS No Known Immunizations SOCIAL HISTORY Never Assessed REASON FOR REFERRAL FUNCTIONAL STATUS PLAN OF CARE VITAL SIGNS MEDICATIONS Unknown Medications PROCEDURES No Known procedures RESULTS No Results REASON FOR VISIT breast rash/bump Insurance Providers [facility] Member Patient Patient Patient Patient Patient Subscriber Subscriber Subscriber Group Insurance Plan Plan Plan Plan ID Relationship Address Phone Name Date of ID Name Date of No Type Insurance Insurance Insurance Coverage to Subscriber Address Phone Name Dates [employer] [phone] [employer] self [facility] [id number] [facility] [place] -[phone] [facility] [phone] MEDICAL (GENERAL) HISTORY Type Description Date Medical History Anxiety Medical History Migraines Medical History Sjogrens Medical History Anemia Medical History Pituitary microadenoma / prolactinoma Surgical History diagnostic hysteroscopy/D&C 01/05/18 Hospitalization History reaction to Prednisone- severe anxiety 2009 Hospitalization History C.diff 2009
--- OUTSIDE RECORDS SUMMARY | 2019-07-21 18:18 | XMS REPORT | Continuity of Care Document ---
:1980 External Reference #:[id number] Author Name Melba Reynoso NP Address [address] [place] [address] Care Team Providers Name Role Phone Jonathan Johnson MD - Family Medicine Care Team Information Inserter [facility] - Care Team Information Inserter [phone] Physical Therapist Problems Active Problems Provider Date Collagen disease Jonathan Johnson M.D. Onset: 08/01/2009 Anxiety state Jonathan Johnson M.D. Onset: 08/01/2009 Myalgia & Myositis Unspecified Jonathan Johnson M.D. Onset: 08/01/2009 Social History Type Date Description Comments Sex Unknown Tobacco Use Start: Unknown Never Smoked Cigarettes ETOH Use Denies alcohol use Tobacco Use Start: Unknown Patient has never smoked Smoking Status Reviewed: 01/10/18 Patient has never smoked Allergies, Adverse Reactions, Alerts Active Allergies Reaction Severity Comments Date Lactose Intolerance 01/15/2009 Prednisone anxiety 05/29/2009 Trazodone poorly tolerated 05/05/2010 Medications Active Medications SIG Qnty Indications Ordering Provider Date Mometasone Furoate 2 sprays in 17gm R05 Melba Adrian 04/18/2019 each nostril RAQUEL Reynoso 50mcg/Act Suspension once daily Cyclobenzaprine HCL 1 by mouth at 30tabs M54.2 MARCIA Winters 2017 5mg bedtime as Tablets needed Lorazepam 1 by mouth at 90tabs G47.00 Jonathan Johnson, 07/23/2015 1mg Tablets bedtime M.D. schedule a Melatonin 1 po qhs 60caps Family Medicine 07/17/2013 3mg Capsules [facility] Multivitamin 1 po qd Unknown Capsules Plaquenil 1 po qd Unknown 200mg Tablets Advil prn Unknown 200mg Tablets Tylenol 1 by mouth Unknown 325mg Tablets every 4 hours as needed pain Iron daily Unknown Symplex F 1 tab bid Unknown Cortisol Hand Lacer 2 tabs at hs Unknown Tablets Immunizations CPT Code Status Date Vaccine Lot # [id number] Given 11/26/2018 Influenza Vac, Quadrivalent, [place] [id number] Given 11/17/2018 Tdap Tetanus, W Pertussis 525NP Vital Signs Date Vital Result Comment 04/18/2019 11:24am BP Systolic 90 mmHg BP Diastolic 60 mmHg Heart Rate 80 /min Body Temperature 98.7 F Respiratory Rate 16 /min Height 63.5 inches 5'3.50" Weight 126.00 lb BMI (Body Mass Index) 22.0 kg/m2 09/24/2018 10:30am BP Systolic 98 mmHg BP Diastolic 58 mmHg Heart Rate 80 /min Body Temperature 97.9 F Respiratory Rate 12 /min Height 63.5 inches 5'3.50" Weight 119.00 lb BMI (Body Mass Index) 20.7 kg/m2 Results Description No Information Available Procedures Date Code Description Status 09/26/2018 [id number] Mammogram Completed Medical Devices Description No Information Available Encounters Type Date Location Provider Dx Diagnosis Office Visit 04/18/2019 11:15a Main Office Melba Reynoso NP R05 Cough J30.2 Other seasonal allergic rhinitis B35.4 Tinea corporis Assessments Date Code Description Provider 04/18/2019 R05 Cough Melba Reynoso NP 04/18/2019 J30.2 Other seasonal allergic rhinitis Melba Reynoso NP 04/18/2019 B35.4 Tinea corporis Melba Reynoso NP Plan of Treatment 07/21/2019 - Melba Reynoso NPAllComments:1. Patient has been queried about patient's goals/preferences and functional/lifestyle goals at relevant visits. If relevant, describe: Has been discussed, noted above2. Treatment goals as explainedto the patient: see above3. Are there barriers to meeting treatment goals? Yes If Yes, please describe: Barriers include possible insurance limits, disease process, and difficulty with lifestyle changes4. Self -Management goals as described to the patient: Yes, see above As always, we strongly encourage a healthy diet and making physical activity a part of your every day life. If you have questions about how or where to start, please contact the office. Functional Status Description No Information Available Mental Status Description No Information Available Referrals Refer to Reason for Referral Status Appt Date [facility] evaluate and tx-back and neck pain--pt Sent will call to schedule appt [address] [facility] [address] [phone]
[2019-07-21 18:42] VITALS: BP 130/71
--- NOTE | 2019-07-21 19:21 | UC ---
Abdominal Pain Female HPI - HPI Summary HPI Summary: Ms. Aquino started with flatulence and eructation last evening. Subsequently she developed some epigastric pain. This continued to this morning and she had a teleconference with her PCP thought that it was likely gastritis. It worsened and she was advised to follow-up. It's a sharp achy pain and she points to her epigastrium. She was equivocal about whether eating today aggravated it. She is not nauseated. Last night it was worse if she lay on her left side and better if she lay on her back she moved her bowels and bladder normally today except that her stool seemed vallez filter operator in color to her. - History of Current Complaint Chief Complaint: UCAbdominalPain Stated Complaint: ABDOMINAL PAIN Time Seen by Provider: 07/21/19 18:40 Hx Obtained From: Patient Hx Last Menstrual Period: 07/19/19 Onset/Duration: Sudden Onset, Lasting Hours Timing: Constant Severity Initially: Mild Severity Currently: Mild Pain Intensity: 4 Location: Epigastric Radiates: No Character: Aching, Sharp Aggravating Factor(s): Nothing, Deep Breaths - A little bit Alleviating Factor(s): Position Associated Signs and Symptoms: Positive: Negative Allergies/Adverse Reactions: Allergies Allergy/AdvReac Type Severity Reaction Status Date / Time erythromycin base Allergy Vomiting Verified 07/21/19 18:26 [From Erythrocin] lactose Allergy Diarrhea Verified 07/21/19 18:26 misoprostol [From Cytotec] Allergy CRAMPS Verified 07/21/19 18:26 prednisone Allergy Altered Verified 07/21/19 18:26 Mental Status orthotricyclen Allergy Hives Uncoded 07/21/19 18:26 ssri Allergy Nausea Uncoded 07/21/19 18:26 Home Medications: Home Medications Hydroxychloroquine TAB* [Plaquenil TAB*] 200 mg PO DAILY 02/02/12 [History Confirmed 07/21/19] Ferrous Sulfate LIQ* [Feosol LIQ*] 300 mg PO DAILY 05/13/17 [History Confirmed 07/21/19] Ibuprofen TAB* [Advil TAB*] 800 mg PO Q6HR 05/13/17 [History Confirmed 07/21/19] LORazepam TAB(*) [Ativan 0.5 MG TAB (*)] 0.25 mg PO DAILY 05/13/17 [History Confirmed 07/21/19] Melatonin [Meladox] 2 mg PO BEDTIME 05/13/17 [History Confirmed 07/21/19] Metoclopramide TAB* [Reglan TAB*] 10 mg PO Q6H PRN #20 tab 06/29/18 [Rx Confirmed 07/21/19] 5Hydroxytryptophan(Oxitriptan) [5-Htp Maximum Strength] 50 mg PO DAILY 07/21/19 [History Confirmed 07/21/19] PMH/Surg Hx/FS Hx/Imm Hx - Additional Past Medical History Additional PMH: She is on Plaquenil for Sjogren's syndrome Other History Of: Negative For: HIV, Hepatitis B, Hepatitis C, Anticoagulant Therapy - Surgical History Surgical History: Yes Surgery Procedure, Year, and Place: d&c - Family History Known Family History: Positive: Cardiac Disease, Other - lupus Negative: Hypertension - Social History Alcohol Use: None Substance Use Type: None Smoking Status (MU): Never Smoked Tobacco - Immunization History Most Recent Influenza Vaccination: never Most Recent Tetanus Shot: unknown Most Recent Pneumonia Vaccination: never Review of Systems All Other Systems Reviewed And Are Negative: Yes Constitutional: Positive: Negative Skin: Positive: Negative Respiratory: Positive: Negative Cardiovascular: Positive: Negative Gastrointestinal: Positive: Abdominal Pain Genitourinary: Positive: Negative - Her last menstrual period was Wednesday starting and seemed normal to her. Physical Exam - Summary Physical Exam Summary: She is nontoxic in appearance with stable vitals Triage Information Reviewed: Yes Appearance: Well-Appearing, No Pain Distress Vital Signs: Initial Vital Signs Temp 98.8 F 07/21/19 18:41 Pulse 103 07/21/19 18:41 Resp 18 07/21/19 18:41 BP 130/71 07/21/19 18:41 Pulse Ox 97 07/21/19 18:41 Vital Signs Reviewed: Yes ENT Exam: Normal Respiratory Exam: Normal Cardiovascular Exam: Normal Abdominal Exam: Other - She is tender in the epigastrium. She has a negative Cabrera's test and is nontender in the right upper quadrant. The rest of her abdomen is nontender with normoactive bowel sounds. Bowel Sounds: Positive: Present Abd Pain Female Course/Dx - Course Course Of Treatment: It's worse and that she is on plaquenil but she seems nontoxic at this time. She clearly seems to have epigastric tenderness and I think this is more related to gastritis. Gallbladder or pancreas issues are still not ruled out and we do not have ultrasound or labs available at this time. Blood was drawn and we will have results tomorrow. I discussed with her the possibility of going to the emergency department for better workup however she is concerned because of COVID 19 and will prefer to wait. I recommended a PPI or H2 aleks and she did not want take those. I recommended that if she worsens in any way she should go immediately to the emergency department for evaluation. - Differential Dx/Diagnosis Provider Diagnosis: Epigastric abdominal pain Discharge ED - Sign-Out/Discharge Documenting (check all that apply): Patient Departure All imaging exams completed and their final reports reviewed: No Studies - Discharge Plan Condition: Stable Disposition: HOME Patient Education Materials: Epigastric Pain (ED) Referrals: Jonathan Johnson MD [Primary Care Provider] - Additional Instructions: If you worsen in any way please go immediately to the emergency department for further evaluation. - Billing Disposition and Condition Condition: STABLE Disposition: Home
[2019-07-22 15:09] LABS: ABS Lymphocytes 0.9 10^3/ul (1.0-4.8); ABS Monocytes 0.4 10^3/ul (0-0.8); ABS Neutrophils 2.7 10^3/ul (1.5-7.7); Eosinophil % 1.2 %; Hematocrit 38 % (35-47); Hemoglobin 13.2 g/dL (12.0-16.0); Lymphocyte % 21.4 %; Mean Corpuscular HGB Conc 34 g/dL (31-36); Mean Corpuscular Hemoglobin 30 pg (27-31); Mean Corpuscular Volume 88 fL (80-97); Mean Platelet Volume 9.2 fL (7.4-10.4); Nucleated Red Blood Cells % 0.1; Platelet Count 211 10^3/uL (150-450); Red Blood Count 4.38 10^6 /uL (3.70-4.87); Red Cell Distribution Width 13 % (10-15)
[2019-07-22 15:14] LABS: Albumin 4.4 g/dL (3.2-5.2); Calcium 9.6 mg/dL (8.6-10.3); Potassium 3.7 mmol/L (3.5-5.0); Total Bilirubin 0.4 mg/dL (0.2-1.0)
[2019-07-22 15:20] LABS: Albumin/Globulin Ratio 1.7 (1-3); BUN/Creatinine Ratio 16.3 (8-20); C Reactive Protein 1.58 mg/L (<8.01); EGFR African American 96.6 (>60); EGFR Non-African American 79.9 (>60); Globulin 2.6 g/dL (2-4)
== END 2019-07-21 19:32 | disposition home or self-care (01) ==
LOC: UCEAST 18:12
DX: R10.13 Epigastric pain (principal); M35.00 Sjogren syndrome, unspecified; Z79.899 Other long term (current) drug therapy; Z88.8 Allergy status to other drugs, medicaments and biological substances; Z88.1 Allergy status to other antibiotic agents; Z91.011 Allergy to milk products
CPT/HCPCS: 36415; 80053; 83690; 85025; 86140; 99211; G0463